=== PATIENT | female | born 1955 | race African-American/Black ===

== ENCOUNTER 2020-02-08 01:35 | Inpatient (IN) ==
[2020-02-08] MEDS ORDERED: SODIUM CHLORIDE 0.9% 1,000 ML IV STA ×2 (01:49→02:54)
[2020-02-08 02:16] LABS: Basophils # 0.1 10*3/uL (0.0-0.2); Basophils % 0.5 % (0.0-0.8); Eosinophils # 0.4 10*3/uL (0.0-0.87); Hematocrit 32.5 VOL% (35.7-47.0); Hemoglobin 10.3 GM/DL (12.0-16.0); Immature Granulocytes % 1.2 %; Immature Granulocytes Absolute 0.23 #; Lymphocytes # 4.3 10*3/uL (1.4-4.0); Lymphocytes % 21.7 % (21.3-54.2); Mean Corpuscular HGB Conc 31.7 GM/DL (32-36); Mean Corpuscular Volume 88.6 FL (87-102); Mean Platelet Volume 11.2 FL (9.6-12.0); Monocytes % 5.7 % (1.7-12.7); NRBC # 0.07 10*3/uL; Neutrophils % 68.9 % (38.7-73.9); Platelet Count 447 T/CUMM (130-400); Red Blood Count 3.67 MC/CUMM (3.8-5.5); Red Cell Distribution Width 18.4 % (9.3-17.3); White Blood Count 19.9 T/CUMM (4-12)
[2020-02-08 02:35] LABS: Albumin 2.1 G/DL (3.4-5.0); Bilirubin,Total 0.6 MG/DL (0.2-1.0); Calcium 8.8 MG/DL (8.5-10.1); Ferritin 333.7 ng/ml (8-252); Osmolality,Calculated 273.5 MOS/KG (273-304); Total Protein 7.7 G/DL (6.4-8.3)
[2020-02-08 02:49] LABS: Bilirubin,Urine Negative (Negative); Blood, Urine Negative (Negative); Glucose,Urine (UA) Negative (Negative); Ketones,Urine Negative (Negative); Nitrite,Urine Negative (Negative); Protein,Urine 100 MG/DL; RBC,Urine 92 /HPF (0-4); Urine Appearance CLOUDY (Clear); Urine Color Yellow (Yellow); Urine Specific Gravity 1.019 (1.001-1.035); Urine Urobilinogen < 2.0 EU/DL (0.2-1.0); WBC,Urine 5918 /HPF (0-6)
[2020-02-08] MEDS ORDERED: PIPERACILLIN/TAZOBACTAM 3,375 MG in SODIUM CHLORIDE 0.9% 100 ML IV STA (02:53)
[2020-02-08] MEDS ORDERED: INSULIN REGULAR 100 UNIT/ML IV STA (02:53)
[2020-02-08] MEDS ORDERED: DEXTROSE 50% 25 GM/50 ML VIAL IV STA (02:53)
[2020-02-08] MEDS ORDERED: DEXTROSE 50% 25 GM/50 ML SYRINGE IV ONE (03:29)
[2020-02-08] MEDS ORDERED: GLUCAGON 1 MG VIAL IM PRN (05:14)
[2020-02-08] MEDS ORDERED: DEXTROSE 50% 25 GM/50 ML SYRINGE IV PRN (05:14)
[2020-02-08] MEDS: SODIUM CHLORIDE 0.9% 1,000 ML IV SCH ×2 (06:34→22:11)
[2020-02-08] MEDS ORDERED: PANTOPRAZOLE 40 MG TABLET PO SCH (09:00)
[2020-02-08] MEDS: ENOXAPARIN 30 MG/0.3 ML SYRINGE SUBCUT SCH (09:31)
[2020-02-08] MEDS: PIPERACILLIN/TAZOBACTAM 3,375 MG in SODIUM CHLORIDE 0.9% 100 ML IV SCH (13:59)
[2020-02-08] MEDS: ONDANSETRON 4 MG/2 ML VIAL IV PRN (20:04)
[2020-02-09] MEDS ORDERED: DIAZEPAM 5 MG TABLET PO PRN (00:30)
[2020-02-09] MEDS: clonazePAM 0.5 MG TABLET PO SCH ×3 (00:48→20:54)
[2020-02-09 05:44] LABS: Basophils # 0.1 10*3/uL (0.0-0.2); Basophils % 0.4 % (0.0-0.8); Eosinophils # 0.4 10*3/uL (0.0-0.87); Eosinophils % 1.4 % (0.00-10.9); Hematocrit 26.7 VOL% (35.7-47.0); Immature Granulocytes % 1.1 %; Immature Granulocytes Absolute 0.28 #; Lymphocytes # 3.4 10*3/uL (1.4-4.0); Lymphocytes % 13.2 % (21.3-54.2); Mean Corpuscular HGB Conc 30.3 GM/DL (32-36); Mean Corpuscular Volume 91.4 FL (87-102); Mean Platelet Volume 10.6 FL (9.6-12.0); Monocytes % 5.4 % (1.7-12.7); Neutrophils % 78.5 % (38.7-73.9); Red Blood Count 2.92 MC/CUMM (3.8-5.5); Red Cell Distribution Width 18.5 % (9.3-17.3)
[2020-02-09 05:52] LABS: Hemoglobin 8.1 GM/DL (12.0-16.0); White Blood Count 25.5 T/CUMM (4-12)
[2020-02-09 05:53] LABS: Platelet Count 351 T/CUMM (130-400)
[2020-02-09 06:21] LABS: Albumin 1.5 G/DL (3.4-5.0); Bilirubin,Total 1.4 MG/DL (0.2-1.0); Calcium 8.2 MG/DL (8.5-10.1); Ferritin 327.9 ng/ml (8-252); Osmolality,Calculated 287.5 MOS/KG (273-304); Total Protein 5.9 G/DL (6.4-8.3)
[2020-02-09 07:46] LABS: Band Neutrophils 6 % (0-10); Lymphocytes 12 % (20-55); Segmented Neutrophils 77 % (50-85); Total Cells Counted 100
[2020-02-09 07:47] LABS: Anisocytosis 1+; Hypochromasia 2+; Macrocytosis 1+; Platelet Estimate Normal
[2020-02-09] MEDS: PIPERACILLIN/TAZOBACTAM 3,375 MG in SODIUM CHLORIDE 0.9% 100 ML IV SCH ×2 (09:04→20:53)
[2020-02-09] MEDS: ENOXAPARIN 30 MG/0.3 ML SYRINGE SUBCUT SCH (09:07)
[2020-02-09] MEDS: SODIUM CHLORIDE 0.9% 1,000 ML IV SCH (09:08)
[2020-02-09] MEDS: ONDANSETRON 4 MG/2 ML VIAL IV PRN (09:20)
[2020-02-09] MEDS ORDERED: SODIUM POLYSTYRENE SULFATE 15 GM/60 ML BOTTLE PO ONE (15:43)
[2020-02-09 17:26] LABS: % Iron Saturation 9.8 % (18-50); Ferritin 291.1 ng/ml (8-252)
[2020-02-09 17:43] LABS: Folate 6.3 NG/ML (5.4-24.0); Vitamin B12 > 2000 PG/ML (211-911)
[2020-02-10] MEDS: SODIUM CHLORIDE 0.9% 1,000 ML IV SCH ×2 (01:19→15:04)
[2020-02-10 06:34] LABS: Basophils # 0.1 10*3/uL (0.0-0.2); Basophils % 0.3 % (0.0-0.8); Eosinophils # 0.5 10*3/uL (0.0-0.87); Eosinophils % 2.3 % (0.00-10.9); Hematocrit 29.8 VOL% (35.7-47.0); Hemoglobin 8.7 GM/DL (12.0-16.0); Immature Granulocytes % 0.9 %; Lymphocytes # 3.1 10*3/uL (1.4-4.0); Lymphocytes % 13.4 % (21.3-54.2); Mean Corpuscular HGB Conc 29.2 GM/DL (32-36); Mean Corpuscular Volume 93.4 FL (87-102); Mean Platelet Volume 10.7 FL (9.6-12.0); Monocytes % 5.9 % (1.7-12.7); Neutrophils % 77.2 % (38.7-73.9); Platelet Count 335 T/CUMM (130-400); Red Blood Count 3.19 MC/CUMM (3.8-5.5); Red Cell Distribution Width 18.6 % (9.3-17.3); White Blood Count 23.3 T/CUMM (4-12)
[2020-02-10 06:53] LABS: Albumin 1.6 G/DL (3.4-5.0); Bilirubin,Total 0.7 MG/DL (0.2-1.0); Calcium 8.9 MG/DL (8.5-10.1); Total Protein 6.2 G/DL (6.4-8.3)
[2020-02-10 07:02] LABS: Anisocytosis 2+; Band Neutrophils 12 % (0-10); Eosinophils 5 % (0-10); Lymphocytes 16 % (20-55); Platelet Estimate Normal; Segmented Neutrophils 62 % (50-85); Smudge Cells Few; Total Cells Counted 100
[2020-02-10 07:03] LABS: Burr Cells Few
[2020-02-10] MEDS: clonazePAM 0.5 MG TABLET PO SCH ×2 (08:42→20:51)
[2020-02-10] MEDS: PIPERACILLIN/TAZOBACTAM 3,375 MG in SODIUM CHLORIDE 0.9% 100 ML IV SCH ×2 (08:42→20:51)
[2020-02-10] MEDS: ENOXAPARIN 30 MG/0.3 ML SYRINGE SUBCUT SCH (08:51)
[2020-02-10] MEDS: MEGESTROL 40 MG TABLET PO SCH ×2 (12:31→16:49)
[2020-02-10] MEDS: GABAPENTIN 300 MG CAPSULE PO SCH ×2 (15:05→20:51)
[2020-02-10] MEDS: FERROUS SULFATE 325 MG TABLET PO SCH ×2 (15:05→20:52)
[2020-02-10 20:11] LABS: Bilirubin,Urine Negative (Negative); Blood, Urine Small mg/dL (Negative); Glucose,Urine (UA) Negative (Negative); Ketones,Urine Negative (Negative); Nitrite,Urine Negative (Negative); Protein,Urine 100 MG/DL; RBC,Urine 15 /HPF (0-4); Urine Appearance CLOUDY (Clear); Urine Color Yellow (Yellow); Urine Specific Gravity 1.012 (1.001-1.035); Urine Urobilinogen < 2.0 EU/DL (0.2-1.0); WBC,Urine 887 /HPF (0-6)
[2020-02-11] MEDS: SODIUM CHLORIDE 0.9% 1,000 ML IV SCH (05:17)
[2020-02-11 06:02] LABS: Basophils # 0.1 10*3/uL (0.0-0.2); Basophils % 0.4 % (0.0-0.8); Eosinophils # 0.5 10*3/uL (0.0-0.87); Eosinophils % 1.9 % (0.00-10.9); Hematocrit 27.2 VOL% (35.7-47.0); Hemoglobin 8.1 GM/DL (12.0-16.0); Immature Granulocytes Absolute 0.26 #; Lymphocytes # 3.9 10*3/uL (1.4-4.0); Lymphocytes % 15.6 % (21.3-54.2); Mean Corpuscular HGB Conc 29.8 GM/DL (32-36); Mean Corpuscular Volume 92.2 FL (87-102); Mean Platelet Volume 10.3 FL (9.6-12.0); Monocytes % 4.2 % (1.7-12.7); Neutrophils % 76.9 % (38.7-73.9); Platelet Count 354 T/CUMM (130-400); Red Blood Count 2.95 MC/CUMM (3.8-5.5); Red Cell Distribution Width 18.6 % (9.3-17.3); White Blood Count 24.9 T/CUMM (4-12)
[2020-02-11 06:15] LABS: Alanine Aminotransferase 16 U/L (13-56); Albumin 1.3 G/DL (3.4-5.0); Alkaline Phosphatase 253 U/L (45-117); Aspartate Amino Transferase 18 U/L (0-37); Bilirubin,Total < 0.39 MG/DL (0.2-1.0); Blood Urea Nitrogen 49 MG/DL (7-18); Calcium 8.5 MG/DL (8.5-10.1); Estimated Glom Filtration Rate 14 ML/MIN; Glucose 77 MG/DL (74-106); Osmolality,Calculated 301.6 MOS/KG (273-304); Total Protein 6.1 G/DL (6.4-8.3)
[2020-02-11 07:56] LABS: Anisocytosis 2+; Band Neutrophils 7 % (0-10); Eosinophils 2 % (0-10); Lymphocytes 13 % (20-55); Metamyelocytes 1 %; Platelet Estimate Normal; Segmented Neutrophils 70 % (50-85); Total Cells Counted 100
[2020-02-11 07:57] LABS: Macrocytosis 1+
[2020-02-11] MEDS: PIPERACILLIN/TAZOBACTAM 3,375 MG in SODIUM CHLORIDE 0.9% 100 ML IV SCH ×2 (09:31→22:35)
[2020-02-11] MEDS: GABAPENTIN 300 MG CAPSULE PO SCH ×3 (09:32→21:45)
[2020-02-11] MEDS: MEGESTROL 40 MG TABLET PO SCH ×3 (09:32→17:15)
[2020-02-11] MEDS: ENOXAPARIN 30 MG/0.3 ML SYRINGE SUBCUT SCH (09:32)
[2020-02-11] MEDS: clonazePAM 0.5 MG TABLET PO SCH ×2 (09:33→21:44)
[2020-02-11] MEDS: FERROUS SULFATE 325 MG TABLET PO SCH ×3 (09:33→21:44)
[2020-02-11] MEDS ORDERED: VANCOMYCIN INJ 1,250 MG in SODIUM CHLORIDE 0.9% 250 ML IV PRN (13:19)
[2020-02-11] MEDS ORDERED: VANCOMYCIN INJ 1,250 MG in SODIUM CHLORIDE 0.9% 250 ML IV ONE ×2 (15:00→18:00)
[2020-02-12 06:26] LABS: Basophils # 0.1 10*3/uL (0.0-0.2); Basophils % 0.5 % (0.0-0.8); Eosinophils # 0.7 10*3/uL (0.0-0.87); Eosinophils % 4.3 % (0.00-10.9); Hematocrit 28.5 VOL% (35.7-47.0); Hemoglobin 8.4 GM/DL (12.0-16.0); Immature Granulocytes % 1.7 %; Immature Granulocytes Absolute 0.28 #; Lymphocytes % 18.7 % (21.3-54.2); Mean Corpuscular HGB Conc 29.5 GM/DL (32-36); Mean Corpuscular Volume 92.2 FL (87-102); Mean Platelet Volume 10.5 FL (9.6-12.0); Monocytes % 7.4 % (1.7-12.7); Neutrophils % 67.4 % (38.7-73.9); Platelet Count 359 T/CUMM (130-400); Red Blood Count 3.09 MC/CUMM (3.8-5.5); Red Cell Distribution Width 19.1 % (9.3-17.3); White Blood Count 16.3 T/CUMM (4-12)
[2020-02-12 06:34] LABS: Alanine Aminotransferase 15 U/L (13-56); Albumin 1.4 G/DL (3.4-5.0); Alkaline Phosphatase 280 U/L (45-117); Aspartate Amino Transferase 23 U/L (0-37); Bilirubin,Total < 0.39 MG/DL (0.2-1.0); Blood Urea Nitrogen 49 MG/DL (7-18); Calcium 8.8 MG/DL (8.5-10.1); Estimated Glom Filtration Rate 17 ML/MIN; Glucose 72 MG/DL (74-106); Osmolality,Calculated 307.1 MOS/KG (273-304); Total Protein 6.4 G/DL (6.4-8.3)
[2020-02-12 07:48] LABS: Anisocytosis 2+; Macrocytosis 1+; Platelet Estimate Normal; Target Cells Few
[2020-02-12] MEDS: ENOXAPARIN 30 MG/0.3 ML SYRINGE SUBCUT SCH (08:52)
[2020-02-12] MEDS: PIPERACILLIN/TAZOBACTAM 3,375 MG in SODIUM CHLORIDE 0.9% 100 ML IV SCH ×2 (08:52→20:50)
[2020-02-12] MEDS ORDERED: FUROSEMIDE 40 MG/4 ML VIAL IV ONE (09:00)
[2020-02-12] MEDS ORDERED: DEXTROSE 5% NACL 0.45% 1,000 ML IV SCH (09:00)
[2020-02-12] MEDS: clonazePAM 0.5 MG TABLET PO SCH ×2 (09:07→20:32)
[2020-02-12] MEDS: MEGESTROL 40 MG TABLET PO SCH ×3 (09:07→16:41)
[2020-02-12] MEDS: FERROUS SULFATE 325 MG TABLET PO SCH ×3 (09:07→20:31)
[2020-02-12] MEDS: GABAPENTIN 300 MG CAPSULE PO SCH ×3 (09:07→20:32)
[2020-02-12 09:32] LABS: ABG Base Excess -8.2 MMOL/L (-2.5-2.5); ABG HCO3 17.8 MMOL/L (20-26); ABG Oxygen Saturation 95.8 % (95-100); ABG PCO2 55.2 MM HG (35-48); ABG TCO2 19.3 MMOL/L (23-27)
[2020-02-12 09:34] LABS: ABG PH 7.179 (7.35-7.45)
[2020-02-12] MEDS ORDERED: SODIUM BICARB INJ 100 MEQ in DEXTROSE 5% NACL 0.22% 1,000 ML IV SCH (10:30)
[2020-02-12] MEDS ORDERED: VANCOMYCIN INJ 1,250 MG in SODIUM CHLORIDE 0.9% 250 ML IV ONE (12:00)
[2020-02-12 18:42] LABS: ABG Base Excess -2.5 MMOL/L (-2.5-2.5); ABG HCO3 22.3 MMOL/L (20-26); ABG Oxygen Saturation 96.8 % (95-100); ABG PCO2 57.3 MM HG (35-48); ABG PH 7.253 (7.35-7.45); ABG PO2 88.5 MM HG (80-95); ABG TCO2 23.8 MMOL/L (23-27)
[2020-02-12] MEDS: SODIUM BICARB INJ 100 MEQ in DEXTROSE 5% NACL 0.22% 1,000 ML IV SCH (23:59)
[2020-02-13] MEDS: PANTOPRAZOLE 40 MG TABLET PO SCH (05:37)
[2020-02-13 08:09] LABS: Basophils # 0.1 10*3/uL (0.0-0.2); Basophils % 0.5 % (0.0-0.8); Eosinophils % 10.9 % (0.00-10.9); Hematocrit 27.5 VOL% (35.7-47.0); Hemoglobin 8.5 GM/DL (12.0-16.0); Immature Granulocytes % 1.6 %; Immature Granulocytes Absolute 0.15 #; Lymphocytes % 21.1 % (21.3-54.2); Mean Corpuscular HGB Conc 30.9 GM/DL (32-36); Mean Platelet Volume 9.8 FL (9.6-12.0); Monocytes % 10.8 % (1.7-12.7); Neutrophils % 55.1 % (38.7-73.9); Platelet Count 312 T/CUMM (130-400); Red Blood Count 3.09 MC/CUMM (3.8-5.5); Red Cell Distribution Width 18.5 % (9.3-17.3); White Blood Count 9.4 T/CUMM (4-12)
[2020-02-13 08:29] LABS: Calcium 8.8 MG/DL (8.5-10.1)
[2020-02-13] MEDS: ENOXAPARIN 30 MG/0.3 ML SYRINGE SUBCUT SCH (09:08)
[2020-02-13] MEDS: PIPERACILLIN/TAZOBACTAM 3,375 MG in SODIUM CHLORIDE 0.9% 100 ML IV SCH ×2 (09:08→21:03)
[2020-02-13] MEDS: MEGESTROL 40 MG TABLET PO SCH ×3 (10:19→16:52)
[2020-02-13] MEDS: FERROUS SULFATE 325 MG TABLET PO SCH ×3 (10:19→21:00)
[2020-02-13] MEDS: GABAPENTIN 300 MG CAPSULE PO SCH ×3 (10:19→21:03)
[2020-02-13] MEDS: clonazePAM 0.5 MG TABLET PO SCH ×2 (10:19→21:03)
[2020-02-13] MEDS: POTASSIUM CHLORIDE 20 MEQ TABLET PO SCH (14:25)
[2020-02-13] MEDS: SODIUM BICARB INJ 100 MEQ in DEXTROSE 5% NACL 0.22% 1,000 ML IV SCH (14:49)
[2020-02-13 15:38] LABS: ABG Base Excess 6.7 MMOL/L (-2.5-2.5); ABG HCO3 30.5 MMOL/L (20-26); ABG Oxygen Saturation 90.8 % (95-100); ABG PH 7.399 (7.35-7.45); ABG PO2 60.1 MM HG (80-95); ABG TCO2 30.3 MMOL/L (23-27); Allen Test Positive; Pt O2 Delivery Device BIPAP
[2020-02-13] MEDS: AZITHROMYCIN INJ 500 MG in SODIUM CHLORIDE 0.9% 250 ML IV SCH (15:41)
[2020-02-13] MEDS: DEXTROSE 5% 1,000 ML IV SCH (15:41)
[2020-02-13] MEDS: POTASSIUM CHLORIDE RIDER 10 MEQ in PREMIX 1 EACH IV SCH ×4 (16:11→19:36)
[2020-02-14] MEDS: DEXTROSE 5% 1,000 ML IV SCH ×3 (04:50→21:29)
[2020-02-14] MEDS: PANTOPRAZOLE 40 MG TABLET PO SCH (05:46)
[2020-02-14 05:57] LABS: ABG Base Excess 4.7 MMOL/L (-2.5-2.5); ABG HCO3 29.9 MMOL/L (20-26); ABG Oxygen Saturation 94.2 % (95-100); ABG PCO2 48.1 MM HG (35-48); ABG PH 7.412 (7.35-7.45); ABG PO2 71.9 MM HG (80-95); ABG TCO2 31.4 MMOL/L (23-27)
[2020-02-14 07:46] LABS: Calcium 8.2 MG/DL (8.5-10.1); Osmolality,Calculated 300.3 MOS/KG (273-304)
[2020-02-14] MEDS: ENOXAPARIN 30 MG/0.3 ML SYRINGE SUBCUT SCH (08:31)
[2020-02-14] MEDS: PIPERACILLIN/TAZOBACTAM 3,375 MG in SODIUM CHLORIDE 0.9% 100 ML IV SCH (08:32)
[2020-02-14] MEDS: MEGESTROL 40 MG TABLET PO SCH ×3 (09:46→16:35)
[2020-02-14] MEDS: POTASSIUM CHLORIDE 20 MEQ TABLET PO SCH (09:47)
[2020-02-14] MEDS: FERROUS SULFATE 325 MG TABLET PO SCH ×3 (09:47→21:46)
[2020-02-14] MEDS: clonazePAM 0.5 MG TABLET PO SCH ×2 (09:48→21:46)
[2020-02-14] MEDS: GABAPENTIN 300 MG CAPSULE PO SCH ×2 (09:48→14:19)
[2020-02-14] MEDS ORDERED: MAGNESIUM SULF RIDER 4 GM in PREMIX 1 EACH IV ONE (10:00)
[2020-02-14] MEDS ORDERED: VANCOMYCIN INJ 1,250 MG in SODIUM CHLORIDE 0.9% 250 ML IV ONE (12:00)
[2020-02-14] MEDS ORDERED: TUBERCULIN SKIN TEST 0.1 ML SYRINGE INTRADERM ONE (14:04)
[2020-02-14] MEDS: AZITHROMYCIN INJ 500 MG in SODIUM CHLORIDE 0.9% 250 ML IV SCH (14:54)
[2020-02-14] MEDS ORDERED: ENOXAPARIN 60 MG/0.6 ML SYRINGE SUBCUT ONE ×2 (17:41→21:30)
[2020-02-14] MEDS ORDERED: ENOXAPARIN 80 MG/0.8 ML SYRINGE SUBCUT SCH (18:00)
[2020-02-14] MEDS ORDERED: AMPICILLIN/SULBACTAM 1,500 MG in SODIUM CHLORIDE 0.9% 100 ML IV SCH (18:00)
[2020-02-14] MEDS: MEROPENEM 500 MG in SODIUM CHLORIDE 0.9% 100 ML IV SCH (21:28)
[2020-02-15 04:54] LABS: ABG Base Excess 3.6 MMOL/L (-2.5-2.5); ABG HCO3 27.6 MMOL/L (20-26); ABG Oxygen Saturation 96.3 % (95-100); ABG PCO2 48.5 MM HG (35-48); ABG PH 7.389 (7.35-7.45); ABG PO2 84.2 MM HG (80-95); ABG TCO2 26.5 MMOL/L (23-27); Allen Test Positive
[2020-02-15] MEDS: MEROPENEM 500 MG in SODIUM CHLORIDE 0.9% 100 ML IV SCH ×3 (05:31→22:53)
[2020-02-15] MEDS: PANTOPRAZOLE 40 MG TABLET PO SCH (05:31)
[2020-02-15] MEDS: DEXTROSE 5% 1,000 ML IV SCH ×2 (05:40→20:23)
[2020-02-15 05:50] LABS: Basophils # 0.1 10*3/uL (0.0-0.2); Basophils % 0.5 % (0.0-0.8); Eosinophils # 0.6 10*3/uL (0.0-0.87); Eosinophils % 6.3 % (0.00-10.9); Hematocrit 29.8 VOL% (35.7-47.0); Hemoglobin 9.3 GM/DL (12.0-16.0); Immature Granulocytes % 2.5 %; Immature Granulocytes Absolute 0.23 #; Mean Corpuscular HGB Conc 31.2 GM/DL (32-36); Mean Corpuscular Volume 87.9 FL (87-102); Mean Platelet Volume 10.6 FL (9.6-12.0); Monocytes % 5.4 % (1.7-12.7); Neutrophils % 63.3 % (38.7-73.9); Platelet Count 270 T/CUMM (130-400); Red Blood Count 3.39 MC/CUMM (3.8-5.5); Red Cell Distribution Width 18.2 % (9.3-17.3); White Blood Count 9.2 T/CUMM (4-12)
[2020-02-15 06:49] LABS: Albumin 1.4 G/DL (3.4-5.0); Bilirubin,Total 0.8 MG/DL (0.2-1.0); Calcium 7.8 MG/DL (8.5-10.1); Osmolality,Calculated 281.5 MOS/KG (273-304); Total Protein 5.3 G/DL (6.4-8.3)
[2020-02-15 06:57] LABS: Eosinophils 7 % (0-10); Lymphocytes 15 % (20-55); Platelet Estimate Normal; Segmented Neutrophils 69 % (50-85); Total Cells Counted 100
[2020-02-15] MEDS: POTASSIUM CHLORIDE 20 MEQ TABLET PO SCH (08:44)
[2020-02-15] MEDS: clonazePAM 0.5 MG TABLET PO SCH ×2 (08:44→20:22)
[2020-02-15] MEDS: FERROUS SULFATE 325 MG TABLET PO SCH ×3 (08:44→20:22)
[2020-02-15] MEDS ORDERED: SKIN HEALING OINT (AQUAPHOR) 50 GM TUBE TOP PRN (09:14)
[2020-02-15] MEDS ORDERED: ENOXAPARIN 80 MG/0.8 ML SYRINGE SUBCUT SCH (18:00)
[2020-02-15] MEDS ORDERED: AZITHROMYCIN INJ 500 MG in SODIUM CHLORIDE 0.9% 250 ML IV SCH (19:00)
[2020-02-15] MEDS: methylPREDNISolone SOD SUC 40 MG/1 ML VIAL IV SCH (20:23)
[2020-02-16] MEDS: methylPREDNISolone SOD SUC 40 MG/1 ML VIAL IV SCH ×3 (04:14→18:02)
[2020-02-16] MEDS: MEROPENEM 500 MG in SODIUM CHLORIDE 0.9% 100 ML IV SCH (05:47)
[2020-02-16] MEDS: PANTOPRAZOLE 40 MG TABLET PO SCH (05:48)
[2020-02-16 06:03] LABS: Basophils # 0.1 10*3/uL (0.0-0.2); Basophils % 0.5 % (0.0-0.8); Eosinophils % 0.1 % (0.00-10.9); Hematocrit 32.3 VOL% (35.7-47.0); Hemoglobin 10.2 GM/DL (12.0-16.0); Immature Granulocytes % 4.6 %; Immature Granulocytes Absolute 0.53 #; Lymphocytes # 1.8 10*3/uL (1.4-4.0); Lymphocytes % 15.8 % (21.3-54.2); Mean Corpuscular HGB Conc 31.6 GM/DL (32-36); Mean Corpuscular Volume 85.7 FL (87-102); Mean Platelet Volume 10.9 FL (9.6-12.0); Monocytes % 1.6 % (1.7-12.7); NRBC # 0.03 10*3/uL; Neutrophils % 77.4 % (38.7-73.9); Platelet Count 310 T/CUMM (130-400); Red Blood Count 3.77 MC/CUMM (3.8-5.5); Red Cell Distribution Width 17.4 % (9.3-17.3); White Blood Count 11.5 T/CUMM (4-12)
[2020-02-16 07:46] LABS: Band Neutrophils 1 % (0-10); Lymphocytes 10 % (20-55); Segmented Neutrophils 88 % (50-85); Total Cells Counted 100
[2020-02-16 07:47] LABS: Microcytosis 1+; Platelet Estimate Increased; Target Cells 1+
[2020-02-16] MEDS: ENOXAPARIN 60 MG/0.6 ML SYRINGE SUBCUT SCH (09:42)
[2020-02-16] MEDS: FERROUS SULFATE 325 MG TABLET PO SCH ×3 (09:43→21:17)
[2020-02-16] MEDS: POTASSIUM CHLORIDE 20 MEQ TABLET PO SCH (09:43)
[2020-02-16] MEDS: AZITHROMYCIN 250 MG TABLET PO SCH (09:43)
[2020-02-16] MEDS: clonazePAM 0.5 MG TABLET PO SCH ×2 (09:43→21:17)
[2020-02-16 09:56] LABS: Calcium 8.4 MG/DL (8.5-10.1); Osmolality,Calculated 275.1 MOS/KG (273-304)
[2020-02-16] MEDS: AMPICILLIN/SULBACTAM 3,000 MG in SODIUM CHLORIDE 0.9% 100 ML IV SCH ×3 (15:14→18:48)
[2020-02-16] MEDS: VANCOMYCIN INJ 1,250 MG in SODIUM CHLORIDE 0.9% 250 ML IV SCH (15:15)
[2020-02-16] MEDS: DEXTROSE 5% 1,000 ML IV SCH (15:19)
[2020-02-17] MEDS: ONDANSETRON 4 MG/2 ML VIAL IV PRN ×3 (02:23→14:38)
[2020-02-17] MEDS: AMPICILLIN/SULBACTAM 3,000 MG in SODIUM CHLORIDE 0.9% 100 ML IV SCH ×4 (02:24→18:30)
[2020-02-17] MEDS: methylPREDNISolone SOD SUC 40 MG/1 ML VIAL IV SCH ×3 (04:40→18:30)
[2020-02-17] MEDS: DEXTROSE 5% 1,000 ML IV SCH (04:42)
[2020-02-17 05:37] LABS: Basophils # 0.1 10*3/uL (0.0-0.2); Basophils % 0.4 % (0.0-0.8); Hematocrit 30.5 VOL% (35.7-47.0); Hemoglobin 9.7 GM/DL (12.0-16.0); Immature Granulocytes % 4.6 %; Immature Granulocytes Absolute 0.57 #; Lymphocytes # 3.3 10*3/uL (1.4-4.0); Lymphocytes % 26.2 % (21.3-54.2); Mean Corpuscular HGB Conc 31.8 GM/DL (32-36); Mean Corpuscular Volume 85.2 FL (87-102); Mean Platelet Volume 10.5 FL (9.6-12.0); Monocytes % 1.9 % (1.7-12.7); Neutrophils % 66.9 % (38.7-73.9); Platelet Count 363 T/CUMM (130-400); Red Blood Count 3.58 MC/CUMM (3.8-5.5); Red Cell Distribution Width 17.3 % (9.3-17.3); White Blood Count 12.4 T/CUMM (4-12)
[2020-02-17] MEDS: PANTOPRAZOLE 40 MG TABLET PO SCH (06:00)
[2020-02-17 06:08] LABS: Lymphocytes 22 % (20-55); Metamyelocytes 2 %; Segmented Neutrophils 76 % (50-85); Total Cells Counted 100
[2020-02-17 06:09] LABS: Anisocytosis 1+; Hypochromasia 2+; Microcytosis 1+; Platelet Estimate Normal; Target Cells Few
[2020-02-17 06:11] LABS: Calcium 8.7 MG/DL (8.5-10.1); Osmolality,Calculated 270.4 MOS/KG (273-304)
[2020-02-17] MEDS: AZITHROMYCIN 250 MG TABLET PO SCH (08:38)
[2020-02-17] MEDS: clonazePAM 0.5 MG TABLET PO SCH ×2 (08:38→20:26)
[2020-02-17] MEDS: FERROUS SULFATE 325 MG TABLET PO SCH ×3 (08:38→20:26)
[2020-02-17] MEDS: POTASSIUM CHLORIDE 20 MEQ TABLET PO SCH (08:38)
[2020-02-17] MEDS: ENOXAPARIN 60 MG/0.6 ML SYRINGE SUBCUT SCH (08:39)
[2020-02-17] MEDS: CIPROFLOXACIN 500 MG TABLET PO SCH ×2 (14:39→20:26)
[2020-02-17] MEDS: ACETAMINOPHEN 325 MG TABLET PO PRN (14:39)
[2020-02-17] MEDS: METOPROLOL TARTRATE 50 MG TABLET PO SCH ×2 (15:41→20:26)
[2020-02-18] MEDS: AMPICILLIN/SULBACTAM 3,000 MG in SODIUM CHLORIDE 0.9% 100 ML IV SCH ×4 (00:16→18:04)
[2020-02-18] MEDS: VANCOMYCIN INJ 1,250 MG in SODIUM CHLORIDE 0.9% 250 ML IV SCH (01:39)
[2020-02-18] MEDS: methylPREDNISolone SOD SUC 40 MG/1 ML VIAL IV SCH ×3 (02:27→18:04)
[2020-02-18] MEDS: PANTOPRAZOLE 40 MG TABLET PO SCH (05:53)
[2020-02-18 06:02] LABS: Basophils % 0.2 % (0.0-0.8); Hematocrit 31.9 VOL% (35.7-47.0); Hemoglobin 10.2 GM/DL (12.0-16.0); Immature Granulocytes % 1.7 %; Lymphocytes # 1.8 10*3/uL (1.4-4.0); Lymphocytes % 10.4 % (21.3-54.2); Mean Corpuscular Volume 85.1 FL (87-102); Mean Platelet Volume 11.1 FL (9.6-12.0); Monocytes % 2.3 % (1.7-12.7); NRBC # 0.02 10*3/uL; Neutrophils % 85.4 % (38.7-73.9); Platelet Count 411 T/CUMM (130-400); Red Blood Count 3.75 MC/CUMM (3.8-5.5); Red Cell Distribution Width 17.2 % (9.3-17.3); White Blood Count 17.6 T/CUMM (4-12)
[2020-02-18] MEDS: clonazePAM 0.5 MG TABLET PO SCH ×2 (09:25→20:28)
[2020-02-18] MEDS: POTASSIUM CHLORIDE 20 MEQ TABLET PO SCH (09:25)
[2020-02-18] MEDS: FERROUS SULFATE 325 MG TABLET PO SCH ×3 (09:25→20:28)
[2020-02-18] MEDS: CIPROFLOXACIN 500 MG TABLET PO SCH ×2 (09:25→20:28)
[2020-02-18] MEDS: METOPROLOL TARTRATE 50 MG TABLET PO SCH ×2 (09:25→20:28)
[2020-02-18] MEDS: ENOXAPARIN 60 MG/0.6 ML SYRINGE SUBCUT SCH (09:26)
[2020-02-19] MEDS: AMPICILLIN/SULBACTAM 3,000 MG in SODIUM CHLORIDE 0.9% 100 ML IV SCH ×4 (00:42→18:06)
[2020-02-19] MEDS: methylPREDNISolone SOD SUC 40 MG/1 ML VIAL IV SCH ×3 (02:09→18:07)
[2020-02-19] MEDS: PANTOPRAZOLE 40 MG TABLET PO SCH ×2 (06:01→20:54)
[2020-02-19] MEDS: FERROUS SULFATE 325 MG TABLET PO SCH ×3 (08:31→20:47)
[2020-02-19] MEDS: clonazePAM 0.5 MG TABLET PO SCH ×2 (08:31→20:48)
[2020-02-19] MEDS: ENOXAPARIN 60 MG/0.6 ML SYRINGE SUBCUT SCH (08:32)
[2020-02-19] MEDS: METOPROLOL TARTRATE 50 MG TABLET PO SCH ×2 (08:32→20:47)
[2020-02-19] MEDS: POTASSIUM CHLORIDE 20 MEQ TABLET PO SCH (08:32)
[2020-02-19] MEDS: CIPROFLOXACIN 500 MG TABLET PO SCH ×2 (08:32→20:47)
[2020-02-19 09:34] LABS: Basophils % 0.1 % (0.0-0.8); Hematocrit 30.1 VOL% (35.7-47.0); Hemoglobin 9.5 GM/DL (12.0-16.0); Immature Granulocytes % 2.8 %; Immature Granulocytes Absolute 0.31 #; Lymphocytes # 1.9 10*3/uL (1.4-4.0); Lymphocytes % 17.4 % (21.3-54.2); Mean Corpuscular HGB Conc 31.6 GM/DL (32-36); Mean Corpuscular Volume 85.3 FL (87-102); Mean Platelet Volume 11.4 FL (9.6-12.0); Monocytes % 2.5 % (1.7-12.7); NRBC # 0.02 10*3/uL; Neutrophils % 77.2 % (38.7-73.9); Platelet Count 377 T/CUMM (130-400); Red Blood Count 3.53 MC/CUMM (3.8-5.5); Red Cell Distribution Width 17.6 % (9.3-17.3)
[2020-02-19 11:05] LABS: Calcium 9.1 MG/DL (8.5-10.1); Osmolality,Calculated 274.2 MOS/KG (273-304)
[2020-02-19 14:07] LABS: Thyroid Stimulating Hormone 0.622 uIU/ml (0.358-3.74)
[2020-02-19 14:36] LABS: Basophils % 0.2 % (0.0-0.8); Hematocrit 31.2 VOL% (35.7-47.0); Hemoglobin 9.8 GM/DL (12.0-16.0); Immature Granulocytes % 2.6 %; Immature Granulocytes Absolute 0.32 #; Lymphocytes # 2.5 10*3/uL (1.4-4.0); Lymphocytes % 20.2 % (21.3-54.2); Mean Corpuscular HGB Conc 31.4 GM/DL (32-36); Mean Corpuscular Volume 86.2 FL (87-102); Mean Platelet Volume 11.1 FL (9.6-12.0); Monocytes % 8.2 % (1.7-12.7); NRBC # 0.03 10*3/uL; Neutrophils % 68.8 % (38.7-73.9); Platelet Count 371 T/CUMM (130-400); Red Blood Count 3.62 MC/CUMM (3.8-5.5); Red Cell Distribution Width 17.4 % (9.3-17.3); White Blood Count 12.4 T/CUMM (4-12)
[2020-02-19 14:44] LABS: Alanine Aminotransferase 39 U/L (13-56); Alkaline Phosphatase 322 U/L (45-117); Aspartate Amino Transferase 102 U/L (0-37); Bilirubin,Total < 0.39 MG/DL (0.2-1.0); Blood Urea Nitrogen 25 MG/DL (7-18); Calcium 8.8 MG/DL (8.5-10.1); Estimated Glom Filtration Rate 43 ML/MIN; Glucose 137 MG/DL (74-106); Osmolality,Calculated 273.2 MOS/KG (273-304); Total Protein 7.1 G/DL (6.4-8.3)
[2020-02-19] MEDS ORDERED: hydrALAZINE 20 MG/1 ML VIAL IV PRN (15:06)
[2020-02-19] MEDS ORDERED: METOPROLOL TARTRATE 50 MG TABLET PO SCH (15:13)
[2020-02-19] MEDS ORDERED: MAGNESIUM SULF RIDER 2 GM in PREMIX 1 EACH IV ONE (15:48)
[2020-02-19] MEDS: amLODIPine 10 MG TABLET PO SCH (16:07)
[2020-02-19] MEDS: MAGNESIUM OXIDE 400 MG TABLET PO SCH (20:54)
[2020-02-20] MEDS: AMPICILLIN/SULBACTAM 3,000 MG in SODIUM CHLORIDE 0.9% 100 ML IV SCH ×4 (00:05→18:02)
[2020-02-20] MEDS: methylPREDNISolone SOD SUC 40 MG/1 ML VIAL IV SCH ×3 (02:10→18:02)
[2020-02-20 06:31] LABS: Basophils # 0.1 10*3/uL (0.0-0.2); Basophils % 0.5 % (0.0-0.8); Hematocrit 36.6 VOL% (35.7-47.0); Hemoglobin 11.1 GM/DL (12.0-16.0); Immature Granulocytes % 2.1 %; Immature Granulocytes Absolute 0.21 #; Lymphocytes # 1.9 10*3/uL (1.4-4.0); Lymphocytes % 19.1 % (21.3-54.2); Mean Corpuscular HGB Conc 30.3 GM/DL (32-36); Mean Corpuscular Volume 87.4 FL (87-102); Mean Platelet Volume 12.3 FL (9.6-12.0); Monocytes % 2.9 % (1.7-12.7); NRBC # 0.02 10*3/uL; Neutrophils % 75.4 % (38.7-73.9); Platelet Count 282 T/CUMM (130-400); Red Blood Count 4.19 MC/CUMM (3.8-5.5); Red Cell Distribution Width 17.5 % (9.3-17.3); White Blood Count 9.9 T/CUMM (4-12)
[2020-02-20 06:46] LABS: Calcium 8.9 MG/DL (8.5-10.1); Osmolality,Calculated 267.7 MOS/KG (273-304)
[2020-02-20 07:16] LABS: Risk Ratio 4.91
[2020-02-20] MEDS: clonazePAM 0.5 MG TABLET PO SCH ×2 (09:25→20:32)
[2020-02-20] MEDS: MAGNESIUM OXIDE 400 MG TABLET PO SCH ×2 (09:25→20:32)
[2020-02-20] MEDS: PANTOPRAZOLE 40 MG TABLET PO SCH ×2 (09:25→20:32)
[2020-02-20] MEDS: POTASSIUM CHLORIDE 20 MEQ TABLET PO SCH (09:25)
[2020-02-20] MEDS: METOPROLOL TARTRATE 50 MG TABLET PO SCH ×2 (09:25→20:32)
[2020-02-20] MEDS: ASPIRIN EC 81 MG TABLET PO SCH (09:25)
[2020-02-20] MEDS: CIPROFLOXACIN 500 MG TABLET PO SCH ×2 (09:25→20:32)
[2020-02-20] MEDS: CITALOPRAM 20 MG TABLET PO SCH (09:26)
[2020-02-20] MEDS: amLODIPine 10 MG TABLET PO SCH (09:26)
[2020-02-20] MEDS: FERROUS SULFATE 325 MG TABLET PO SCH ×3 (09:26→20:32)
[2020-02-20] MEDS: OXYBUTYNIN XL 5 MG TABLET PO SCH (09:26)
[2020-02-20] MEDS: ENOXAPARIN 60 MG/0.6 ML SYRINGE SUBCUT SCH (09:26)
[2020-02-20] MEDS: ROSUVASTATIN 20 MG TABLET PO SCH (10:41)
[2020-02-21] MEDS: AMPICILLIN/SULBACTAM 3,000 MG in SODIUM CHLORIDE 0.9% 100 ML IV SCH ×4 (02:29→18:15)
[2020-02-21] MEDS: methylPREDNISolone SOD SUC 40 MG/1 ML VIAL IV SCH ×3 (04:09→18:15)
[2020-02-21 05:53] LABS: Calcium 8.6 MG/DL (8.5-10.1); Osmolality,Calculated 268.5 MOS/KG (273-304)
[2020-02-21 08:16] LABS: Basophils % 0.2 % (0.0-0.8); Hematocrit 29.2 VOL% (35.7-47.0); Hemoglobin 9.5 GM/DL (12.0-16.0); Immature Granulocytes % 2.1 %; Immature Granulocytes Absolute 0.21 #; Lymphocytes # 1.3 10*3/uL (1.4-4.0); Lymphocytes % 12.7 % (21.3-54.2); Mean Corpuscular HGB Conc 32.5 GM/DL (32-36); Mean Corpuscular Volume 83.9 FL (87-102); Mean Platelet Volume 11.9 FL (9.6-12.0); Platelet Count 319 T/CUMM (130-400); Red Blood Count 3.48 MC/CUMM (3.8-5.5); Red Cell Distribution Width 16.9 % (9.3-17.3); White Blood Count 9.8 T/CUMM (4-12)
[2020-02-21 08:36] LABS: Hypochromasia 1+; Microcytosis 1+; Platelet Estimate Adequate
[2020-02-21] MEDS: clonazePAM 0.5 MG TABLET PO SCH ×2 (09:14→20:48)
[2020-02-21] MEDS: ACETAMINOPHEN 325 MG TABLET PO PRN (09:14)
[2020-02-21] MEDS: MAGNESIUM OXIDE 400 MG TABLET PO SCH ×2 (09:14→20:48)
[2020-02-21] MEDS: ROSUVASTATIN 20 MG TABLET PO SCH (09:14)
[2020-02-21] MEDS: ENOXAPARIN 60 MG/0.6 ML SYRINGE SUBCUT SCH (09:15)
[2020-02-21] MEDS: amLODIPine 10 MG TABLET PO SCH (09:15)
[2020-02-21] MEDS: PANTOPRAZOLE 40 MG TABLET PO SCH ×2 (09:15→20:48)
[2020-02-21] MEDS: OXYBUTYNIN XL 5 MG TABLET PO SCH (09:15)
[2020-02-21] MEDS: CITALOPRAM 20 MG TABLET PO SCH (09:15)
[2020-02-21] MEDS: POTASSIUM CHLORIDE 20 MEQ TABLET PO SCH (09:15)
[2020-02-21] MEDS: ASPIRIN EC 81 MG TABLET PO SCH (09:15)
[2020-02-21] MEDS: FERROUS SULFATE 325 MG TABLET PO SCH ×3 (09:15→20:48)
[2020-02-21] MEDS: CIPROFLOXACIN 500 MG TABLET PO SCH ×2 (09:15→20:48)
[2020-02-21] MEDS: METOPROLOL TARTRATE 50 MG TABLET PO SCH ×2 (09:15→20:48)
[2020-02-21] MEDS: DESITIN 4OZ/NYSTATIN 15 GRAM MIXTURE PASTE TOP SCH ×2 (09:16→20:48)
[2020-02-22] MEDS: AMPICILLIN/SULBACTAM 3,000 MG in SODIUM CHLORIDE 0.9% 100 ML IV SCH ×4 (00:33→18:04)
[2020-02-22] MEDS: methylPREDNISolone SOD SUC 40 MG/1 ML VIAL IV SCH ×3 (03:26→18:04)
[2020-02-22 08:19] LABS: Basophils % 0.2 % (0.0-0.8); Immature Granulocytes Absolute 0.19 #; Lymphocytes # 1.3 10*3/uL (1.4-4.0); Lymphocytes % 13.7 % (21.3-54.2); Mean Corpuscular HGB Conc 32.3 GM/DL (32-36); Mean Corpuscular Volume 84.7 FL (87-102); Mean Platelet Volume 12.4 FL (9.6-12.0); Monocytes % 2.7 % (1.7-12.7); Neutrophils % 81.4 % (38.7-73.9); Platelet Count 336 T/CUMM (130-400); Red Blood Count 3.66 MC/CUMM (3.8-5.5); Red Cell Distribution Width 17.1 % (9.3-17.3); White Blood Count 9.5 T/CUMM (4-12)
[2020-02-22 08:46] LABS: Calcium 8.6 MG/DL (8.5-10.1); Osmolality,Calculated 271.4 MOS/KG (273-304)
[2020-02-22] MEDS: PANTOPRAZOLE 40 MG TABLET PO SCH ×2 (09:42→20:19)
[2020-02-22] MEDS: METOPROLOL TARTRATE 50 MG TABLET PO SCH ×2 (09:42→20:19)
[2020-02-22] MEDS: ASPIRIN EC 81 MG TABLET PO SCH (09:42)
[2020-02-22] MEDS: ENOXAPARIN 60 MG/0.6 ML SYRINGE SUBCUT SCH (09:42)
[2020-02-22] MEDS: CIPROFLOXACIN 500 MG TABLET PO SCH ×2 (09:42→20:19)
[2020-02-22] MEDS: amLODIPine 10 MG TABLET PO SCH (09:42)
[2020-02-22] MEDS: OXYBUTYNIN XL 5 MG TABLET PO SCH (09:42)
[2020-02-22] MEDS: CITALOPRAM 20 MG TABLET PO SCH (09:42)
[2020-02-22] MEDS: ROSUVASTATIN 20 MG TABLET PO SCH (09:42)
[2020-02-22] MEDS: FERROUS SULFATE 325 MG TABLET PO SCH ×3 (09:42→20:19)
[2020-02-22] MEDS: POTASSIUM CHLORIDE 20 MEQ TABLET PO SCH (09:42)
[2020-02-22] MEDS: MAGNESIUM OXIDE 400 MG TABLET PO SCH ×2 (09:42→20:19)
[2020-02-22] MEDS: DESITIN 4OZ/NYSTATIN 15 GRAM MIXTURE PASTE TOP SCH ×2 (09:43→20:19)
[2020-02-22] MEDS: ACETAMINOPHEN 325 MG TABLET PO PRN (20:19)
[2020-02-22] MEDS: ONDANSETRON 4 MG/2 ML VIAL IV PRN (20:52)
[2020-02-23] MEDS: AMPICILLIN/SULBACTAM 3,000 MG in SODIUM CHLORIDE 0.9% 100 ML IV SCH ×4 (01:09→18:12)
[2020-02-23] MEDS: methylPREDNISolone SOD SUC 40 MG/1 ML VIAL IV SCH ×3 (02:18→18:12)
[2020-02-23] MEDS: ROSUVASTATIN 20 MG TABLET PO SCH (10:01)
[2020-02-23] MEDS: ENOXAPARIN 60 MG/0.6 ML SYRINGE SUBCUT SCH (10:01)
[2020-02-23] MEDS: OXYBUTYNIN XL 5 MG TABLET PO SCH (10:01)
[2020-02-23] MEDS: CITALOPRAM 20 MG TABLET PO SCH (10:01)
[2020-02-23] MEDS: CIPROFLOXACIN 500 MG TABLET PO SCH ×2 (10:01→20:05)
[2020-02-23] MEDS: amLODIPine 10 MG TABLET PO SCH (10:01)
[2020-02-23] MEDS: MAGNESIUM OXIDE 400 MG TABLET PO SCH ×2 (10:02→20:05)
[2020-02-23] MEDS: PANTOPRAZOLE 40 MG TABLET PO SCH ×2 (10:02→20:05)
[2020-02-23] MEDS: POTASSIUM CHLORIDE 20 MEQ TABLET PO SCH (10:02)
[2020-02-23] MEDS: DESITIN 4OZ/NYSTATIN 15 GRAM MIXTURE PASTE TOP SCH ×2 (10:02→20:06)
[2020-02-23] MEDS: METOPROLOL TARTRATE 50 MG TABLET PO SCH ×2 (10:02→20:05)
[2020-02-23] MEDS: FERROUS SULFATE 325 MG TABLET PO SCH ×3 (10:02→20:05)
[2020-02-23] MEDS: ASPIRIN EC 81 MG TABLET PO SCH (10:02)
[2020-02-24] MEDS: methylPREDNISolone SOD SUC 40 MG/1 ML VIAL IV SCH ×3 (02:38→21:21)
[2020-02-24] MEDS: ENOXAPARIN 60 MG/0.6 ML SYRINGE SUBCUT SCH (10:12)
[2020-02-24] MEDS: ASPIRIN EC 81 MG TABLET PO SCH (10:13)
[2020-02-24] MEDS: CIPROFLOXACIN 500 MG TABLET PO SCH ×2 (10:13→21:21)
[2020-02-24] MEDS: ROSUVASTATIN 20 MG TABLET PO SCH (10:13)
[2020-02-24] MEDS: POTASSIUM CHLORIDE 20 MEQ TABLET PO SCH (10:13)
[2020-02-24] MEDS: FERROUS SULFATE 325 MG TABLET PO SCH ×3 (10:13→21:21)
[2020-02-24] MEDS: MAGNESIUM OXIDE 400 MG TABLET PO SCH ×2 (10:13→21:21)
[2020-02-24] MEDS: CITALOPRAM 20 MG TABLET PO SCH (10:13)
[2020-02-24] MEDS: METOPROLOL TARTRATE 50 MG TABLET PO SCH ×2 (10:13→21:21)
[2020-02-24] MEDS: DESITIN 4OZ/NYSTATIN 15 GRAM MIXTURE PASTE TOP SCH ×2 (10:14→21:21)
[2020-02-24] MEDS: PANTOPRAZOLE 40 MG TABLET PO SCH ×2 (10:14→21:21)
[2020-02-24] MEDS: OXYBUTYNIN XL 5 MG TABLET PO SCH (10:14)
[2020-02-24] MEDS: amLODIPine 10 MG TABLET PO SCH (10:14)
[2020-02-25] MEDS: methylPREDNISolone SOD SUC 40 MG/1 ML VIAL IV SCH ×2 (02:50→12:13)
[2020-02-25] MEDS: ROSUVASTATIN 20 MG TABLET PO SCH (09:25)
[2020-02-25] MEDS: METOPROLOL TARTRATE 50 MG TABLET PO SCH (09:25)
[2020-02-25] MEDS: POTASSIUM CHLORIDE 20 MEQ TABLET PO SCH (09:25)
[2020-02-25] MEDS: OXYBUTYNIN XL 5 MG TABLET PO SCH (09:25)
[2020-02-25] MEDS: MAGNESIUM OXIDE 400 MG TABLET PO SCH (09:25)
[2020-02-25] MEDS: FERROUS SULFATE 325 MG TABLET PO SCH ×2 (09:25→14:07)
[2020-02-25] MEDS: amLODIPine 10 MG TABLET PO SCH (09:26)
[2020-02-25] MEDS: ASPIRIN EC 81 MG TABLET PO SCH (09:26)
[2020-02-25] MEDS: ENOXAPARIN 60 MG/0.6 ML SYRINGE SUBCUT SCH (09:26)
[2020-02-25] MEDS: PANTOPRAZOLE 40 MG TABLET PO SCH (09:26)
[2020-02-25] MEDS: CITALOPRAM 20 MG TABLET PO SCH (09:26)
[2020-02-25] MEDS: DESITIN 4OZ/NYSTATIN 15 GRAM MIXTURE PASTE TOP SCH (09:26)
[2020-02-25 16:42] VITALS: BP 111/65
== END 2020-02-25 19:40 | disposition home health service (06) | DRG 720 ==
LOC: EDUNIT# → EDBD → N.ED 01:35 → SUATTDRO 05:14 → N.EDINP 05:14 → N.5E 07:40
PROVIDERS: ADMIT Family Medicine; ATTEND Internal Medicine

== ENCOUNTER 2020-03-07 10:57 | Inpatient (IN) ==
[2020-03-07] MEDS ORDERED: SODIUM CHLORIDE 0.9% 1,000 ML IV STA (11:22)
[2020-03-07 12:39] LABS: Bilirubin,Urine Negative (Negative); Blood, Urine Large mg/dL (Negative); Glucose,Urine (UA) Negative (Negative); Ketones,Urine Negative (Negative); Nitrite,Urine Negative (Negative); Protein,Urine 100 MG/DL; RBC,Urine 1417 /HPF (0-4); Urine Appearance CLOUDY (Clear); Urine Urobilinogen < 2.0 EU/DL (0.2-1.0); WBC,Urine 55653 /HPF (0-6)
[2020-03-07 12:40] LABS: Urine Color Brown (Yellow)
[2020-03-07 13:00] LABS: Basophils # 0.1 10*3/uL (0.0-0.2); Basophils % 0.4 % (0.0-0.8); Eosinophils # 0.5 10*3/uL (0.0-0.87); Eosinophils % 3.4 % (0.00-10.9); Hemoglobin 10.7 GM/DL (12.0-16.0); Immature Granulocytes % 0.4 %; Immature Granulocytes Absolute 0.06 #; Lymphocytes # 2.6 10*3/uL (1.4-4.0); Lymphocytes % 17.1 % (21.3-54.2); Mean Corpuscular HGB Conc 31.5 GM/DL (32-36); Mean Corpuscular Volume 86.5 FL (87-102); Mean Platelet Volume 11.7 FL (9.6-12.0); Monocytes % 5.9 % (1.7-12.7); Neutrophils % 72.8 % (38.7-73.9); Platelet Count 297 T/CUMM (130-400); Red Blood Count 3.93 MC/CUMM (3.8-5.5); Red Cell Distribution Width 18.2 % (9.3-17.3); White Blood Count 15.2 T/CUMM (4-12)
[2020-03-07] MEDS ORDERED: cefTRIAXone 1,000 MG in SODIUM CHLORIDE 0.9% 100 ML IV STA (13:16)
[2020-03-07] MEDS ORDERED: cefTRIAXone 1,000 MG in SYRINGE 1 EACH IV STA (13:18)
[2020-03-07 13:19] LABS: Osmolality,Calculated 277.1 MOS/KG (273-304)
[2020-03-07 13:25] LABS: Potassium 6.1 MMOL/L (3.5-5.1)
[2020-03-07] MEDS ORDERED: ALBUTEROL 2.5 MG/3 ML NEB RESP TX STA (13:25)
[2020-03-07] MEDS ORDERED: SODIUM POLYSTYRENE SULFATE 15 GM/60 ML BOTTLE PO STA (13:36)
[2020-03-07] MEDS ORDERED: GLUCAGON 1 MG VIAL IM PRN (13:40)
[2020-03-07] MEDS ORDERED: DEXTROSE 50% 25 GM/50 ML VIAL IV PRN (13:40)
[2020-03-07] MEDS ORDERED: SODIUM CHLORIDE 0.9% 100 ML IV ONE (13:49)
[2020-03-07] MEDS: ACETAMINOPHEN 325 MG TABLET PO PRN (15:44)
[2020-03-07] MEDS: ONDANSETRON 4 MG/2 ML VIAL IV PRN ×2 (18:39→22:43)
[2020-03-07] MEDS ORDERED: SODIUM POLYSTYRENE SULFATE 15 GM/60 ML BOTTLE PO ONE (19:45)
[2020-03-08] MEDS: cefTRIAXone 1,000 MG in SYRINGE 1 EACH IV SCH (08:51)
[2020-03-08 09:47] LABS: Basophils # 0.1 10*3/uL (0.0-0.2); Basophils % 0.4 % (0.0-0.8); Eosinophils # 0.2 10*3/uL (0.0-0.87); Eosinophils % 1.2 % (0.00-10.9); Hematocrit 27.8 VOL% (35.7-47.0); Immature Granulocytes % 0.6 %; Immature Granulocytes Absolute 0.09 #; Lymphocytes # 2.4 10*3/uL (1.4-4.0); Lymphocytes % 15.3 % (21.3-54.2); Mean Corpuscular HGB Conc 30.9 GM/DL (32-36); Mean Corpuscular Volume 87.1 FL (87-102); Monocytes % 6.5 % (1.7-12.7); Platelet Count 287 T/CUMM (130-400); Red Blood Count 3.19 MC/CUMM (3.8-5.5); Red Cell Distribution Width 18.1 % (9.3-17.3); White Blood Count 15.9 T/CUMM (4-12)
[2020-03-08 09:59] LABS: Hemoglobin 8.6 GM/DL (12.0-16.0)
[2020-03-08 10:34] LABS: Calcium 8.3 MG/DL (8.5-10.1); Osmolality,Calculated 272.4 MOS/KG (273-304); Risk Ratio 1.9; Thyroid Stimulating Hormone 0.967 uIU/ml (0.358-3.74); VLDL CHOLESTEROL 13.6 MG/DL
[2020-03-08] MEDS: CIPROFLOXACIN 0.3% OPH SOLN 2.5 ML BOTTLE LEFT EYE SCH ×4 (12:44→22:00)
[2020-03-08] MEDS ORDERED: SODIUM POLYSTYRENE SULFATE 15 GM/60 ML BOTTLE PO ONE (12:46)
[2020-03-08] MEDS: SODIUM BICARB INJ 150 MEQ in STERILE WATER INJ 850 ML IV SCH (15:15)
[2020-03-08] MEDS: ACETAMINOPHEN 325 MG TABLET PO PRN (21:08)
[2020-03-09] MEDS: SODIUM BICARB INJ 150 MEQ in STERILE WATER INJ 850 ML IV SCH ×4 (04:44→19:57)
[2020-03-09] MEDS: CIPROFLOXACIN 0.3% OPH SOLN 2.5 ML BOTTLE LEFT EYE SCH ×6 (04:45→21:47)
[2020-03-09 06:00] LABS: Basophils % 0.3 % (0.0-0.8); Eosinophils # 0.5 10*3/uL (0.0-0.87); Eosinophils % 3.9 % (0.00-10.9); Hematocrit 28.2 VOL% (35.7-47.0); Hemoglobin 8.7 GM/DL (12.0-16.0); Immature Granulocytes % 0.5 %; Immature Granulocytes Absolute 0.06 #; Lymphocytes # 2.5 10*3/uL (1.4-4.0); Lymphocytes % 19.1 % (21.3-54.2); Mean Corpuscular HGB Conc 30.9 GM/DL (32-36); Mean Corpuscular Volume 87.3 FL (87-102); Mean Platelet Volume 11.7 FL (9.6-12.0); Monocytes % 6.8 % (1.7-12.7); Neutrophils % 69.4 % (38.7-73.9); Platelet Count 220 T/CUMM (130-400); Red Blood Count 3.23 MC/CUMM (3.8-5.5); Red Cell Distribution Width 18.1 % (9.3-17.3); White Blood Count 13.2 T/CUMM (4-12)
[2020-03-09 06:25] LABS: Calcium 8.3 MG/DL (8.5-10.1); Potassium 4.5 MMOL/L (3.5-5.1)
[2020-03-09] MEDS ORDERED: MAGNESIUM SULF RIDER 4 GM in PREMIX 1 EACH IV ONE (08:24)
[2020-03-09] MEDS: cefTRIAXone 1,000 MG in SYRINGE 1 EACH IV SCH (09:07)
[2020-03-09] MEDS ORDERED: ALBUTEROL/IPRATROPIUM 3 ML NEB RESP TX ONE (12:40)
[2020-03-09] MEDS ORDERED: ALPRAZolam 0.25 MG TABLET PO ONE (12:42)
[2020-03-09] MEDS: CITALOPRAM 20 MG TABLET PO SCH (12:50)
[2020-03-09] MEDS: ASPIRIN EC 81 MG TABLET PO SCH (12:51)
[2020-03-09] MEDS: POTASSIUM CHLORIDE 20 MEQ TABLET PO SCH (12:51)
[2020-03-09] MEDS: amLODIPine 10 MG TABLET PO SCH (12:51)
[2020-03-09] MEDS: ROSUVASTATIN 20 MG TABLET PO SCH (12:51)
[2020-03-09] MEDS: METOPROLOL TARTRATE 50 MG TABLET PO SCH ×2 (12:51→21:46)
[2020-03-09] MEDS: PANTOPRAZOLE 40 MG TABLET PO SCH ×2 (12:51→21:42)
[2020-03-09] MEDS: APIXABAN 2.5 MG TABLET PO SCH ×2 (12:51→21:42)
[2020-03-09] MEDS: FERROUS SULFATE 325 MG TABLET PO SCH ×2 (15:40→21:43)
[2020-03-09] MEDS: SODIUM BICARBONATE 650 MG TABLET PO SCH (21:43)
[2020-03-10] MEDS: SODIUM BICARB INJ 150 MEQ in STERILE WATER INJ 850 ML IV SCH ×3 (00:33→15:45)
[2020-03-10] MEDS: CIPROFLOXACIN 0.3% OPH SOLN 2.5 ML BOTTLE LEFT EYE SCH ×6 (02:08→23:27)
[2020-03-10 06:39] LABS: Basophils % 0.3 % (0.0-0.8); Eosinophils # 0.6 10*3/uL (0.0-0.87); Eosinophils % 6.7 % (0.00-10.9); Hematocrit 22.8 VOL% (35.7-47.0); Hemoglobin 7.3 GM/DL (12.0-16.0); Immature Granulocytes % 0.4 %; Immature Granulocytes Absolute 0.04 #; Lymphocytes % 22.1 % (21.3-54.2); Mean Corpuscular Volume 85.1 FL (87-102); Mean Platelet Volume 11.7 FL (9.6-12.0); Monocytes % 5.6 % (1.7-12.7); Neutrophils % 64.9 % (38.7-73.9); Platelet Count 200 T/CUMM (130-400); Red Blood Count 2.68 MC/CUMM (3.8-5.5); Red Cell Distribution Width 17.4 % (9.3-17.3)
[2020-03-10 06:57] LABS: Calcium 7.6 MG/DL (8.5-10.1); Calcium 7.7 MG/DL (8.5-10.1); Osmolality,Calculated 274.1 MOS/KG (273-304); Osmolality,Calculated 280.7 MOS/KG (273-304); Potassium 3.2 MMOL/L (3.5-5.1)
[2020-03-10] MEDS: PANTOPRAZOLE 40 MG TABLET PO SCH ×2 (09:59→23:26)
[2020-03-10] MEDS: SODIUM BICARBONATE 650 MG TABLET PO SCH ×2 (09:59→23:24)
[2020-03-10] MEDS: ROSUVASTATIN 20 MG TABLET PO SCH (09:59)
[2020-03-10] MEDS: ASPIRIN EC 81 MG TABLET PO SCH (09:59)
[2020-03-10] MEDS: CITALOPRAM 20 MG TABLET PO SCH (09:59)
[2020-03-10] MEDS: APIXABAN 2.5 MG TABLET PO SCH ×2 (10:00→23:25)
[2020-03-10] MEDS: amLODIPine 10 MG TABLET PO SCH (10:00)
[2020-03-10] MEDS: FERROUS SULFATE 325 MG TABLET PO SCH ×3 (10:00→23:25)
[2020-03-10] MEDS: METOPROLOL TARTRATE 50 MG TABLET PO SCH ×2 (10:00→23:26)
[2020-03-10] MEDS: cefTRIAXone 1,000 MG in SYRINGE 1 EACH IV SCH (10:01)
[2020-03-10] MEDS: POTASSIUM CHLORIDE 20 MEQ TABLET PO SCH (10:12)
[2020-03-11] MEDS: SODIUM BICARB INJ 150 MEQ in STERILE WATER INJ 850 ML IV SCH ×2 (01:56→06:54)
[2020-03-11] MEDS: CIPROFLOXACIN 0.3% OPH SOLN 2.5 ML BOTTLE LEFT EYE SCH ×6 (01:57→21:34)
[2020-03-11 06:02] LABS: Basophils % 0.4 % (0.0-0.8); Eosinophils # 0.7 10*3/uL (0.0-0.87); Hematocrit 26.8 VOL% (35.7-47.0); Hemoglobin 8.5 GM/DL (12.0-16.0); Immature Granulocytes % 0.4 %; Immature Granulocytes Absolute 0.03 #; Lymphocytes # 1.8 10*3/uL (1.4-4.0); Lymphocytes % 23.8 % (21.3-54.2); Mean Corpuscular HGB Conc 31.7 GM/DL (32-36); Mean Corpuscular Volume 85.4 FL (87-102); Mean Platelet Volume 11.9 FL (9.6-12.0); Monocytes % 4.5 % (1.7-12.7); Neutrophils % 61.9 % (38.7-73.9); Platelet Count 229 T/CUMM (130-400); Red Blood Count 3.14 MC/CUMM (3.8-5.5); Red Cell Distribution Width 17.7 % (9.3-17.3); White Blood Count 7.5 T/CUMM (4-12)
[2020-03-11 06:20] LABS: Calcium 7.9 MG/DL (8.5-10.1); Osmolality,Calculated 275.7 MOS/KG (273-304); Potassium 3.1 MMOL/L (3.5-5.1)
[2020-03-11] MEDS ORDERED: POTASSIUM CHLORIDE 20 MEQ/15 ML UDCUP PER TUBE PRN (07:40)
[2020-03-11] MEDS: METOPROLOL TARTRATE 50 MG TABLET PO SCH ×3 (10:00→22:45)
[2020-03-11] MEDS: CITALOPRAM 20 MG TABLET PO SCH (10:00)
[2020-03-11] MEDS: ROSUVASTATIN 20 MG TABLET PO SCH (10:00)
[2020-03-11] MEDS: APIXABAN 2.5 MG TABLET PO SCH ×2 (10:00→21:32)
[2020-03-11] MEDS: FERROUS SULFATE 325 MG TABLET PO SCH ×3 (10:00→21:33)
[2020-03-11] MEDS: cefTRIAXone 1,000 MG in SYRINGE 1 EACH IV SCH (10:01)
[2020-03-11] MEDS: PANTOPRAZOLE 40 MG TABLET PO SCH ×3 (10:01→22:45)
[2020-03-11] MEDS: SODIUM BICARBONATE 650 MG TABLET PO SCH ×2 (10:01→21:32)
[2020-03-11] MEDS: ASPIRIN EC 81 MG TABLET PO SCH (10:01)
[2020-03-11] MEDS: POTASSIUM CHLORIDE 20 MEQ TABLET PO SCH (10:01)
[2020-03-11] MEDS: amLODIPine 10 MG TABLET PO SCH (10:01)
[2020-03-11] MEDS: SODIUM CHLORIDE 0.9% 1,000 ML IV SCH (14:26)
[2020-03-12] MEDS: CIPROFLOXACIN 0.3% OPH SOLN 2.5 ML BOTTLE LEFT EYE SCH ×6 (01:26→22:45)
[2020-03-12] MEDS: SODIUM CHLORIDE 0.9% 1,000 ML IV SCH ×3 (05:04→20:36)
[2020-03-12 06:30] LABS: Basophils % 0.3 % (0.0-0.8); Eosinophils # 0.9 10*3/uL (0.0-0.87); Eosinophils % 12.7 % (0.00-10.9); Hematocrit 27.2 VOL% (35.7-47.0); Hemoglobin 8.6 GM/DL (12.0-16.0); Immature Granulocytes % 0.3 %; Immature Granulocytes Absolute 0.02 #; Lymphocytes # 2.1 10*3/uL (1.4-4.0); Lymphocytes % 28.8 % (21.3-54.2); Mean Corpuscular HGB Conc 31.6 GM/DL (32-36); Mean Corpuscular Volume 86.3 FL (87-102); Mean Platelet Volume 11.2 FL (9.6-12.0); Monocytes % 7.2 % (1.7-12.7); Neutrophils % 50.7 % (38.7-73.9); Platelet Count 216 T/CUMM (130-400); Red Blood Count 3.15 MC/CUMM (3.8-5.5); Red Cell Distribution Width 17.5 % (9.3-17.3); White Blood Count 7.2 T/CUMM (4-12)
[2020-03-12 06:48] LABS: Calcium 7.9 MG/DL (8.5-10.1); Osmolality,Calculated 280.4 MOS/KG (273-304); Potassium 4.6 MMOL/L (3.5-5.1)
[2020-03-12 06:51] LABS: Eosinophils 11 % (0-10); Hypochromasia 1+; Lymphocytes 22 % (20-55); Microcytosis 1+; Ovalocytes Slight; Platelet Estimate Adequate; Segmented Neutrophils 63 % (50-85); Total Cells Counted 100
[2020-03-12] MEDS ORDERED: MAGNESIUM SULF RIDER 4 GM in PREMIX 1 EACH IV PRN (07:23)
[2020-03-12] MEDS: ROSUVASTATIN 20 MG TABLET PO SCH (09:35)
[2020-03-12] MEDS: SODIUM BICARBONATE 650 MG TABLET PO SCH ×2 (09:35→22:45)
[2020-03-12] MEDS: PANTOPRAZOLE 40 MG TABLET PO SCH (09:36)
[2020-03-12] MEDS: ASPIRIN EC 81 MG TABLET PO SCH (09:36)
[2020-03-12] MEDS: FERROUS SULFATE 325 MG TABLET PO SCH ×3 (09:36→22:45)
[2020-03-12] MEDS: APIXABAN 2.5 MG TABLET PO SCH ×2 (09:36→22:45)
[2020-03-12] MEDS: CITALOPRAM 20 MG TABLET PO SCH (09:36)
[2020-03-12] MEDS: amLODIPine 10 MG TABLET PO SCH (09:37)
[2020-03-12] MEDS: POTASSIUM CHLORIDE 20 MEQ TABLET PO SCH (09:37)
[2020-03-12] MEDS: METOPROLOL TARTRATE 50 MG TABLET PO SCH (09:38)
[2020-03-12] MEDS: cefTRIAXone 1,000 MG in SYRINGE 1 EACH IV SCH (09:38)
[2020-03-12] MEDS: MAGNESIUM SULF RIDER 2 GM in PREMIX 1 EACH IV PRN (10:48)
[2020-03-13] MEDS: CIPROFLOXACIN 0.3% OPH SOLN 2.5 ML BOTTLE LEFT EYE SCH ×6 (01:55→22:01)
[2020-03-13 07:20] LABS: Basophils % 0.4 % (0.0-0.8); Eosinophils # 0.4 10*3/uL (0.0-0.87); Eosinophils % 8.2 % (0.00-10.9); Hemoglobin 8.2 GM/DL (12.0-16.0); Immature Granulocytes % 0.2 %; Immature Granulocytes Absolute 0.01 #; Lymphocytes # 1.5 10*3/uL (1.4-4.0); Lymphocytes % 28.5 % (21.3-54.2); Mean Corpuscular HGB Conc 30.4 GM/DL (32-36); Mean Corpuscular Volume 89.7 FL (87-102); Mean Platelet Volume 10.9 FL (9.6-12.0); Monocytes % 6.9 % (1.7-12.7); Neutrophils % 55.8 % (38.7-73.9); Platelet Count 226 T/CUMM (130-400); Red Blood Count 3.01 MC/CUMM (3.8-5.5); Red Cell Distribution Width 17.9 % (9.3-17.3); White Blood Count 5.4 T/CUMM (4-12)
[2020-03-13 07:43] LABS: Calcium 8.2 MG/DL (8.5-10.1); Osmolality,Calculated 280.3 MOS/KG (273-304); Potassium 5.3 MMOL/L (3.5-5.1)
[2020-03-13] MEDS: PANTOPRAZOLE 40 MG TABLET PO SCH ×2 (09:22→22:47)
[2020-03-13] MEDS: SODIUM BICARBONATE 650 MG TABLET PO SCH ×2 (09:22→22:47)
[2020-03-13] MEDS: METOPROLOL TARTRATE 50 MG TABLET PO SCH ×2 (09:22→22:47)
[2020-03-13] MEDS: FERROUS SULFATE 325 MG TABLET PO SCH ×3 (09:22→22:47)
[2020-03-13] MEDS: CITALOPRAM 20 MG TABLET PO SCH (09:22)
[2020-03-13] MEDS: APIXABAN 2.5 MG TABLET PO SCH ×2 (09:23→22:47)
[2020-03-13] MEDS: ROSUVASTATIN 20 MG TABLET PO SCH (09:23)
[2020-03-13] MEDS: ASPIRIN EC 81 MG TABLET PO SCH (09:23)
[2020-03-13] MEDS: POTASSIUM CHLORIDE 20 MEQ TABLET PO SCH (09:25)
[2020-03-13] MEDS: amLODIPine 10 MG TABLET PO SCH (09:25)
[2020-03-13] MEDS: cefTRIAXone 1,000 MG in SYRINGE 1 EACH IV SCH (09:26)
[2020-03-13] MEDS: SODIUM CHLORIDE 0.9% 1,000 ML IV SCH ×2 (13:25→22:36)
[2020-03-14] MEDS: CIPROFLOXACIN 0.3% OPH SOLN 2.5 ML BOTTLE LEFT EYE SCH ×6 (01:14→21:09)
[2020-03-14] MEDS: SODIUM CHLORIDE 0.9% 1,000 ML IV SCH ×2 (03:05→08:40)
[2020-03-14] MEDS: ACETAMINOPHEN 325 MG TABLET PO PRN (05:19)
[2020-03-14 08:41] LABS: Basophils % 0.3 % (0.0-0.8); Eosinophils # 0.8 10*3/uL (0.0-0.87); Eosinophils % 12.5 % (0.00-10.9); Hematocrit 27.3 VOL% (35.7-47.0); Hemoglobin 8.3 GM/DL (12.0-16.0); Immature Granulocytes % 0.3 %; Immature Granulocytes Absolute 0.02 #; Lymphocytes # 2.1 10*3/uL (1.4-4.0); Lymphocytes % 33.6 % (21.3-54.2); Mean Corpuscular HGB Conc 30.4 GM/DL (32-36); Mean Corpuscular Volume 89.2 FL (87-102); Mean Platelet Volume 10.9 FL (9.6-12.0); Monocytes % 6.7 % (1.7-12.7); Neutrophils % 46.6 % (38.7-73.9); Platelet Count 249 T/CUMM (130-400); Red Blood Count 3.06 MC/CUMM (3.8-5.5); White Blood Count 6.3 T/CUMM (4-12)
[2020-03-14 08:58] LABS: Osmolality,Calculated 271.8 MOS/KG (273-304); Potassium 4.9 MMOL/L (3.5-5.1)
[2020-03-14 09:04] LABS: Eosinophils 11 % (0-10); Lymphocytes 22 % (20-55); Segmented Neutrophils 64 % (50-85); Total Cells Counted 100
[2020-03-14 09:05] LABS: Hypochromasia 1+; Microcytosis 1+; Platelet Estimate Adequate
[2020-03-14] MEDS: cefTRIAXone 1,000 MG in SYRINGE 1 EACH IV SCH (10:30)
[2020-03-14] MEDS: METOPROLOL TARTRATE 50 MG TABLET PO SCH ×2 (10:31→21:09)
[2020-03-14] MEDS: ASPIRIN EC 81 MG TABLET PO SCH (10:31)
[2020-03-14] MEDS: amLODIPine 10 MG TABLET PO SCH (10:31)
[2020-03-14] MEDS: ROSUVASTATIN 20 MG TABLET PO SCH (10:31)
[2020-03-14] MEDS: PANTOPRAZOLE 40 MG TABLET PO SCH ×2 (10:31→21:08)
[2020-03-14] MEDS: SODIUM BICARBONATE 650 MG TABLET PO SCH ×2 (10:31→21:08)
[2020-03-14] MEDS: CITALOPRAM 20 MG TABLET PO SCH (10:31)
[2020-03-14] MEDS: APIXABAN 2.5 MG TABLET PO SCH ×2 (10:31→21:08)
[2020-03-14] MEDS: FERROUS SULFATE 325 MG TABLET PO SCH ×3 (10:32→21:09)
[2020-03-14] MEDS ORDERED: TUBERCULIN SKIN TEST 0.1 ML SYRINGE INTRADERM ONE (15:00)
[2020-03-14] MEDS: VITAMIN A & D OINT 113 GM TUBE TOP SCH ×2 (18:31→21:09)
[2020-03-15] MEDS: CIPROFLOXACIN 0.3% OPH SOLN 2.5 ML BOTTLE LEFT EYE SCH ×3 (01:36→11:36)
[2020-03-15] MEDS: ONDANSETRON 4 MG/2 ML VIAL IV PRN (05:54)
[2020-03-15] MEDS: PANTOPRAZOLE 40 MG TABLET PO SCH ×2 (08:27→21:21)
[2020-03-15] MEDS: ASPIRIN EC 81 MG TABLET PO SCH (08:27)
[2020-03-15] MEDS: SODIUM BICARBONATE 650 MG TABLET PO SCH ×2 (08:27→21:20)
[2020-03-15] MEDS: CITALOPRAM 20 MG TABLET PO SCH (08:27)
[2020-03-15] MEDS: APIXABAN 2.5 MG TABLET PO SCH ×2 (08:27→21:20)
[2020-03-15] MEDS: FERROUS SULFATE 325 MG TABLET PO SCH ×3 (08:27→21:21)
[2020-03-15] MEDS: cefTRIAXone 1,000 MG in SYRINGE 1 EACH IV SCH (08:28)
[2020-03-15] MEDS: METOPROLOL TARTRATE 50 MG TABLET PO SCH ×2 (09:51→21:54)
[2020-03-15] MEDS: amLODIPine 10 MG TABLET PO SCH (09:51)
[2020-03-15] MEDS: VITAMIN A & D OINT 113 GM TUBE TOP SCH ×2 (09:51→21:23)
[2020-03-15] MEDS: ROSUVASTATIN 20 MG TABLET PO SCH (12:05)
[2020-03-15] MEDS: POTASSIUM CHLORIDE 20 MEQ TABLET PO SCH (12:05)
[2020-03-16 05:13] LABS: Basophils % 0.5 % (0.0-0.8); Eosinophils # 0.6 10*3/uL (0.0-0.87); Eosinophils % 8.6 % (0.00-10.9); Hematocrit 29.9 VOL% (35.7-47.0); Hemoglobin 8.7 GM/DL (12.0-16.0); Immature Granulocytes % 0.5 %; Immature Granulocytes Absolute 0.03 #; Lymphocytes # 2.8 10*3/uL (1.4-4.0); Lymphocytes % 41.9 % (21.3-54.2); Mean Corpuscular HGB Conc 29.1 GM/DL (32-36); Mean Corpuscular Volume 90.6 FL (87-102); Mean Platelet Volume 10.6 FL (9.6-12.0); Monocytes % 7.1 % (1.7-12.7); Neutrophils % 41.4 % (38.7-73.9); Platelet Count 263 T/CUMM (130-400); Red Cell Distribution Width 18.6 % (9.3-17.3); White Blood Count 6.6 T/CUMM (4-12)
[2020-03-16 05:41] LABS: Calcium 8.2 MG/DL (8.5-10.1)
[2020-03-16] MEDS: POTASSIUM CHLORIDE 20 MEQ TABLET PO SCH (09:05)
[2020-03-16] MEDS: ROSUVASTATIN 20 MG TABLET PO SCH (09:06)
[2020-03-16] MEDS: SODIUM BICARBONATE 650 MG TABLET PO SCH ×2 (09:06→21:08)
[2020-03-16] MEDS: APIXABAN 2.5 MG TABLET PO SCH ×2 (09:06→21:08)
[2020-03-16] MEDS: ASPIRIN EC 81 MG TABLET PO SCH (09:06)
[2020-03-16] MEDS: METOPROLOL TARTRATE 50 MG TABLET PO SCH ×2 (09:06→21:08)
[2020-03-16] MEDS: amLODIPine 10 MG TABLET PO SCH (09:07)
[2020-03-16] MEDS: CITALOPRAM 20 MG TABLET PO SCH (09:07)
[2020-03-16] MEDS: FERROUS SULFATE 325 MG TABLET PO SCH ×3 (09:07→21:08)
[2020-03-16] MEDS: ONDANSETRON 4 MG/2 ML VIAL IV PRN (09:07)
[2020-03-16] MEDS: PANTOPRAZOLE 40 MG TABLET PO SCH ×2 (09:07→21:08)
[2020-03-16] MEDS: VITAMIN A & D OINT 113 GM TUBE TOP SCH ×2 (09:09→21:08)
[2020-03-16] MEDS: SODIUM CHLORIDE 0.9% 1,000 ML IV SCH ×2 (11:44→22:00)
[2020-03-17 06:51] LABS: Calcium 8.1 MG/DL (8.5-10.1); Osmolality,Calculated 267.1 MOS/KG (273-304)
[2020-03-17 07:09] LABS: Basophils % 0.4 % (0.0-0.8); Eosinophils # 0.6 10*3/uL (0.0-0.87); Eosinophils % 8.6 % (0.00-10.9); Hematocrit 32.5 VOL% (35.7-47.0); Hemoglobin 9.3 GM/DL (12.0-16.0); Immature Granulocytes % 0.5 %; Immature Granulocytes Absolute 0.04 #; Lymphocytes # 2.9 10*3/uL (1.4-4.0); Mean Corpuscular HGB Conc 28.6 GM/DL (32-36); Mean Corpuscular Volume 91.8 FL (87-102); Mean Platelet Volume 11.2 FL (9.6-12.0); Monocytes % 7.8 % (1.7-12.7); Neutrophils % 42.7 % (38.7-73.9); Platelet Count 283 T/CUMM (130-400); Red Blood Count 3.54 MC/CUMM (3.8-5.5); Red Cell Distribution Width 18.6 % (9.3-17.3); White Blood Count 7.4 T/CUMM (4-12)
[2020-03-17 07:18] LABS: Hypochromasia 1+; Microcytosis 1+; Platelet Estimate Adequate
[2020-03-17] MEDS: SODIUM CHLORIDE 0.9% 1,000 ML IV SCH ×2 (07:59→21:52)
[2020-03-17] MEDS: CITALOPRAM 20 MG TABLET PO SCH (09:08)
[2020-03-17] MEDS: SODIUM BICARBONATE 650 MG TABLET PO SCH ×2 (09:08→21:45)
[2020-03-17] MEDS: ROSUVASTATIN 20 MG TABLET PO SCH (09:08)
[2020-03-17] MEDS: ASPIRIN EC 81 MG TABLET PO SCH (09:08)
[2020-03-17] MEDS: PANTOPRAZOLE 40 MG TABLET PO SCH ×2 (09:09→21:45)
[2020-03-17] MEDS: APIXABAN 2.5 MG TABLET PO SCH (09:09)
[2020-03-17] MEDS: METOPROLOL TARTRATE 50 MG TABLET PO SCH ×2 (09:09→21:45)
[2020-03-17] MEDS: amLODIPine 10 MG TABLET PO SCH (09:10)
[2020-03-17] MEDS: VITAMIN A & D OINT 113 GM TUBE TOP SCH (09:10)
[2020-03-17] MEDS: FERROUS SULFATE 325 MG TABLET PO SCH ×3 (09:27→21:45)
[2020-03-17] MEDS: METOCLOPRAMIDE 10 MG/2 ML VIAL IV SCH ×2 (09:59→21:47)
[2020-03-17] MEDS: HEPARIN 5,000 UNIT/1 ML VIAL SUBCUT SCH ×2 (11:46→21:51)
[2020-03-17] MEDS: DESITIN 4OZ/NYSTATIN 15 GRAM MIXTURE PASTE TOP SCH ×2 (13:18→21:51)
[2020-03-17] MEDS ORDERED: FLUCONAZOLE INJ 200 MG in PREMIX 1 EACH IV ONE (14:30)
[2020-03-17] MEDS ORDERED: NYSTATIN 500,000 UNIT/5 ML UDCUP SWISH/SWAL SCH (17:00)
[2020-03-18] MEDS: SODIUM CHLORIDE 0.9% 1,000 ML IV SCH ×3 (04:18→20:17)
[2020-03-18] MEDS: HEPARIN 5,000 UNIT/1 ML VIAL SUBCUT SCH ×3 (04:41→20:36)
[2020-03-18] MEDS: ACETAMINOPHEN 325 MG TABLET PO PRN ×4 (04:41→20:16)
[2020-03-18 05:51] LABS: Alanine Aminotransferase 18 U/L (13-56); Albumin 1.7 G/DL (3.4-5.0); Alkaline Phosphatase 569 U/L (45-117); Aspartate Amino Transferase 26 U/L (0-37); Bilirubin,Direct < 0.100 MG/DL (0.0-0.20); Bilirubin,Indirect 0.3 MG/DL (0.0-1.0); Blood Urea Nitrogen 14 MG/DL (7-18); Calcium 7.9 MG/DL (8.5-10.1); Carbon Dioxide 20 MMOL/L (21-32); Estimated Glom Filtration Rate 30 ML/MIN; Glucose 91 MG/DL (74-106); Osmolality,Calculated 275.7 MOS/KG (273-304); Potassium 4.5 MMOL/L (3.5-5.1); Sodium 138 MMOL/L (136-145); Total Protein 5.6 G/DL (6.4-8.3)
[2020-03-18 05:53] LABS: Basophils % 0.3 % (0.0-0.8); Eosinophils # 0.6 10*3/uL (0.0-0.87); Eosinophils % 8.4 % (0.00-10.9); Hematocrit 28.9 VOL% (35.7-47.0); Hemoglobin 8.5 GM/DL (12.0-16.0); Immature Granulocytes % 0.5 %; Immature Granulocytes Absolute 0.04 #; Lymphocytes % 39.4 % (21.3-54.2); Mean Corpuscular HGB Conc 29.4 GM/DL (32-36); Mean Corpuscular Volume 88.7 FL (87-102); Mean Platelet Volume 11.2 FL (9.6-12.0); Monocytes % 7.2 % (1.7-12.7); Neutrophils % 44.2 % (38.7-73.9); Platelet Count 296 T/CUMM (130-400); Red Blood Count 3.26 MC/CUMM (3.8-5.5); Red Cell Distribution Width 18.8 % (9.3-17.3); White Blood Count 7.5 T/CUMM (4-12)
[2020-03-18] MEDS: ONDANSETRON 4 MG/2 ML VIAL IV PRN ×2 (07:39→23:57)
[2020-03-18] MEDS: FERROUS SULFATE 325 MG TABLET PO SCH ×3 (08:58→22:06)
[2020-03-18] MEDS: ASPIRIN EC 81 MG TABLET PO SCH (08:58)
[2020-03-18] MEDS: DESITIN 4OZ/NYSTATIN 15 GRAM MIXTURE PASTE TOP SCH ×2 (08:59→22:08)
[2020-03-18] MEDS: SODIUM BICARBONATE 650 MG TABLET PO SCH ×2 (08:59→22:06)
[2020-03-18] MEDS: amLODIPine 10 MG TABLET PO SCH (08:59)
[2020-03-18] MEDS: PANTOPRAZOLE 40 MG TABLET PO SCH ×2 (08:59→22:06)
[2020-03-18] MEDS: METOCLOPRAMIDE 10 MG/2 ML VIAL IV SCH ×2 (08:59→22:08)
[2020-03-18] MEDS: METOPROLOL TARTRATE 50 MG TABLET PO SCH ×2 (08:59→22:04)
[2020-03-18] MEDS: ROSUVASTATIN 20 MG TABLET PO SCH (08:59)
[2020-03-18] MEDS: POTASSIUM CHLORIDE 20 MEQ TABLET PO SCH (09:01)
[2020-03-18] MEDS ORDERED: SODIUM CHLORIDE 0.9% 500 ML IV ONE ×2 (14:11→19:58)
[2020-03-18] MEDS: FLUCONAZOLE INJ 100 MG in IV BAG 1 EACH IV SCH (14:53)
[2020-03-18] MEDS: MAGNESIUM SULF RIDER 2 GM in PREMIX 1 EACH IV PRN (16:24)
[2020-03-19] MEDS: SODIUM CHLORIDE 0.9% 1,000 ML IV SCH ×3 (00:12→15:45)
[2020-03-19 05:20] LABS: Basophils # 0.1 10*3/uL (0.0-0.2); Basophils % 0.6 % (0.0-0.8); Eosinophils # 0.5 10*3/uL (0.0-0.87); Eosinophils % 5.5 % (0.00-10.9); Hematocrit 26.2 VOL% (35.7-47.0); Hemoglobin 8.1 GM/DL (12.0-16.0); Immature Granulocytes % 0.6 %; Immature Granulocytes Absolute 0.05 #; Lymphocytes % 35.3 % (21.3-54.2); Mean Corpuscular HGB Conc 30.9 GM/DL (32-36); Mean Corpuscular Volume 86.8 FL (87-102); Mean Platelet Volume 11.6 FL (9.6-12.0); Monocytes % 7.9 % (1.7-12.7); Neutrophils % 50.1 % (38.7-73.9); Platelet Count 257 T/CUMM (130-400); Red Blood Count 3.02 MC/CUMM (3.8-5.5); White Blood Count 8.4 T/CUMM (4-12)
[2020-03-19 05:35] LABS: Alanine Aminotransferase 18 U/L (13-56); Albumin 1.3 G/DL (3.4-5.0); Alkaline Phosphatase 485 U/L (45-117); Aspartate Amino Transferase 32 U/L (0-37); Bilirubin,Direct < 0.100 MG/DL (0.0-0.20); Bilirubin,Indirect 0.3 MG/DL (0.0-1.0); Bilirubin,Total < 0.39 MG/DL (0.2-1.0); Blood Urea Nitrogen 13 MG/DL (7-18); Calcium 7.6 MG/DL (8.5-10.1); Carbon Dioxide 18 MMOL/L (21-32); Estimated Glom Filtration Rate 25 ML/MIN; Glucose 79 MG/DL (74-106); Osmolality,Calculated 275.5 MOS/KG (273-304); Potassium 4.9 MMOL/L (3.5-5.1); Sodium 139 MMOL/L (136-145)
[2020-03-19] MEDS ORDERED: LACTATED RINGERS 1,000 ML IV SCH (08:00)
[2020-03-19] MEDS ORDERED: DOCUSATE SODIUM 100 MG CAPSULE PO PRN (10:14)
[2020-03-19] MEDS ORDERED: fentaNYL 100 MCG/2 ML VIAL ONE (10:47)
[2020-03-19] MEDS ORDERED: propofoL 200 MG/20 ML VIAL IV ONE (11:12)
[2020-03-19] MEDS ORDERED: LIDOCAINE 2% 5 ML VIAL ONE (11:12)
[2020-03-19] MEDS ORDERED: ONDANSETRON 4 MG/2 ML VIAL ONE (11:12)
[2020-03-19] MEDS ORDERED: METOPROLOL TARTRATE 5 MG/5 ML VIAL IV ONE (11:22)
[2020-03-19] MEDS ORDERED: GLUCAGON 1 MG VIAL IM PRN (12:16)
[2020-03-19] MEDS: amLODIPine 10 MG TABLET PO SCH (13:07)
[2020-03-19] MEDS: FERROUS SULFATE 325 MG TABLET PO SCH ×3 (13:07→20:54)
[2020-03-19] MEDS: ROSUVASTATIN 20 MG TABLET PO SCH (13:07)
[2020-03-19] MEDS: PANTOPRAZOLE 40 MG TABLET PO SCH ×2 (13:07→20:54)
[2020-03-19] MEDS: ASPIRIN EC 81 MG TABLET PO SCH (13:07)
[2020-03-19] MEDS: POTASSIUM CHLORIDE 20 MEQ TABLET PO SCH (13:07)
[2020-03-19] MEDS: METOPROLOL TARTRATE 50 MG TABLET PO SCH ×2 (13:07→20:54)
[2020-03-19] MEDS: DESITIN 4OZ/NYSTATIN 15 GRAM MIXTURE PASTE TOP SCH ×2 (13:08→20:58)
[2020-03-19] MEDS: SODIUM BICARBONATE 650 MG TABLET PO SCH ×2 (13:08→20:53)
[2020-03-19] MEDS: METOCLOPRAMIDE 10 MG/2 ML VIAL IV SCH ×2 (13:12→21:00)
[2020-03-19] MEDS: FLUCONAZOLE INJ 100 MG in IV BAG 1 EACH IV SCH (14:42)
[2020-03-20] MEDS: SODIUM CHLORIDE 0.9% 1,000 ML IV SCH ×4 (02:42→18:45)
[2020-03-20 05:38] LABS: Basophils # 0.1 10*3/uL (0.0-0.2); Basophils % 0.7 % (0.0-0.8); Eosinophils # 0.3 10*3/uL (0.0-0.87); Eosinophils % 3.8 % (0.00-10.9); Hematocrit 24.4 VOL% (35.7-47.0); Hemoglobin 7.6 GM/DL (12.0-16.0); Immature Granulocytes % 0.6 %; Immature Granulocytes Absolute 0.05 #; Lymphocytes # 2.7 10*3/uL (1.4-4.0); Lymphocytes % 30.3 % (21.3-54.2); Mean Corpuscular HGB Conc 31.1 GM/DL (32-36); Mean Corpuscular Volume 85.6 FL (87-102); Mean Platelet Volume 11.2 FL (9.6-12.0); Monocytes % 6.5 % (1.7-12.7); Neutrophils % 58.1 % (38.7-73.9); Platelet Count 266 T/CUMM (130-400); Red Blood Count 2.85 MC/CUMM (3.8-5.5); Red Cell Distribution Width 19.2 % (9.3-17.3)
[2020-03-20 06:03] LABS: Calcium 7.7 MG/DL (8.5-10.1); Osmolality,Calculated 273.7 MOS/KG (273-304); Potassium 5.2 MMOL/L (3.5-5.1)
[2020-03-20] MEDS: ASPIRIN EC 81 MG TABLET PO SCH (09:00)
[2020-03-20] MEDS: METOPROLOL TARTRATE 50 MG TABLET PO SCH ×2 (09:00→21:33)
[2020-03-20] MEDS: ROSUVASTATIN 20 MG TABLET PO SCH (09:00)
[2020-03-20] MEDS: POTASSIUM CHLORIDE 20 MEQ TABLET PO SCH (09:00)
[2020-03-20] MEDS: FERROUS SULFATE 325 MG TABLET PO SCH ×3 (09:00→21:09)
[2020-03-20] MEDS: PANTOPRAZOLE 40 MG TABLET PO SCH ×2 (09:01→21:09)
[2020-03-20] MEDS: amLODIPine 10 MG TABLET PO SCH (09:01)
[2020-03-20] MEDS: METOCLOPRAMIDE 10 MG/2 ML VIAL IV SCH ×2 (09:01→21:10)
[2020-03-20] MEDS: SODIUM BICARBONATE 650 MG TABLET PO SCH ×2 (09:01→21:09)
[2020-03-20] MEDS: DESITIN 4OZ/NYSTATIN 15 GRAM MIXTURE PASTE TOP SCH ×2 (09:01→21:33)
[2020-03-20] MEDS ORDERED: SODIUM POLYSTYRENE SULFATE 15 GM/60 ML BOTTLE PO STA (10:12)
[2020-03-20 11:59] LABS: % Iron Saturation 101.6 % (18-50)
[2020-03-20 17:52] LABS: Bilirubin,Urine Negative (Negative); Blood, Urine Large mg/dL (Negative); Glucose,Urine (UA) Negative (Negative); Ketones,Urine Negative (Negative); Mucus,Urine Occasional /LPF (Occasional); Nitrite,Urine Negative (Negative); Protein,Urine 100 MG/DL; RBC,Urine 91 /HPF (0-4); Urine Appearance CLOUDY (Clear); Urine Color Yellow (Yellow); Urine Specific Gravity 1.013 (1.001-1.035); Urine Urobilinogen < 2.0 EU/DL (0.2-1.0); WBC,Urine 463 /HPF (0-6)
[2020-03-20] MEDS: MAGNESIUM SULF RIDER 2 GM in PREMIX 1 EACH IV PRN (19:00)
[2020-03-21] MEDS: SODIUM CHLORIDE 0.9% 1,000 ML IV SCH ×3 (01:30→21:05)
[2020-03-21 07:15] LABS: Basophils # 0.1 10*3/uL (0.0-0.2); Basophils % 0.8 % (0.0-0.8); Eosinophils # 0.2 10*3/uL (0.0-0.87); Hematocrit 26.4 VOL% (35.7-47.0); Hemoglobin 8.1 GM/DL (12.0-16.0); Immature Granulocytes % 0.7 %; Immature Granulocytes Absolute 0.04 #; Lymphocytes # 2.1 10*3/uL (1.4-4.0); Lymphocytes % 33.8 % (21.3-54.2); Mean Corpuscular HGB Conc 30.7 GM/DL (32-36); Mean Platelet Volume 11.4 FL (9.6-12.0); Monocytes % 8.3 % (1.7-12.7); Neutrophils % 52.4 % (38.7-73.9); Platelet Count 278 T/CUMM (130-400); Red Cell Distribution Width 19.4 % (9.3-17.3); White Blood Count 6.1 T/CUMM (4-12)
[2020-03-21 07:35] LABS: Calcium 7.9 MG/DL (8.5-10.1); Osmolality,Calculated 275.4 MOS/KG (273-304); Potassium 4.9 MMOL/L (3.5-5.1)
[2020-03-21] MEDS: METOPROLOL TARTRATE 50 MG TABLET PO SCH ×2 (08:50→22:58)
[2020-03-21] MEDS: PANTOPRAZOLE 40 MG TABLET PO SCH ×2 (08:50→20:42)
[2020-03-21] MEDS: ROSUVASTATIN 20 MG TABLET PO SCH (08:50)
[2020-03-21] MEDS: amLODIPine 10 MG TABLET PO SCH (08:50)
[2020-03-21] MEDS: ASPIRIN EC 81 MG TABLET PO SCH (08:50)
[2020-03-21] MEDS: SODIUM BICARBONATE 650 MG TABLET PO SCH ×2 (08:50→20:42)
[2020-03-21] MEDS: METOCLOPRAMIDE 10 MG/2 ML VIAL IV SCH ×2 (08:51→20:51)
[2020-03-21] MEDS: FERROUS SULFATE 325 MG TABLET PO SCH ×3 (08:51→20:42)
[2020-03-21] MEDS: DESITIN 4OZ/NYSTATIN 15 GRAM MIXTURE PASTE TOP SCH ×2 (08:51→20:49)
[2020-03-21] MEDS: CIPROFLOXACIN 100 MG/ML 100 ML/BOTTLE PO SCH (20:42)
[2020-03-22] MEDS: SODIUM CHLORIDE 0.9% 1,000 ML IV SCH ×5 (00:28→18:48)
[2020-03-22 07:53] LABS: Basophils # 0.1 10*3/uL (0.0-0.2); Basophils % 0.9 % (0.0-0.8); Eosinophils # 0.2 10*3/uL (0.0-0.87); Eosinophils % 3.1 % (0.00-10.9); Hematocrit 22.1 VOL% (35.7-47.0); Hemoglobin 6.9 GM/DL (12.0-16.0); Immature Granulocytes % 0.7 %; Immature Granulocytes Absolute 0.04 #; Lymphocytes # 2.4 10*3/uL (1.4-4.0); Mean Corpuscular HGB Conc 31.2 GM/DL (32-36); Mean Corpuscular Volume 85.3 FL (87-102); Monocytes % 8.7 % (1.7-12.7); Neutrophils % 42.6 % (38.7-73.9); Platelet Count 300 T/CUMM (130-400); Red Blood Count 2.59 MC/CUMM (3.8-5.5); Red Cell Distribution Width 19.5 % (9.3-17.3); White Blood Count 5.4 T/CUMM (4-12)
[2020-03-22 08:53] LABS: Calcium 7.7 MG/DL (8.5-10.1); Potassium 4.3 MMOL/L (3.5-5.1)
[2020-03-22] MEDS: FERROUS SULFATE 325 MG TABLET PO SCH ×3 (08:58→21:53)
[2020-03-22] MEDS: ASPIRIN EC 81 MG TABLET PO SCH (08:58)
[2020-03-22] MEDS: PANTOPRAZOLE 40 MG TABLET PO SCH ×2 (08:59→21:53)
[2020-03-22] MEDS: METOCLOPRAMIDE 10 MG/2 ML VIAL IV SCH ×2 (08:59→21:56)
[2020-03-22] MEDS: METOPROLOL TARTRATE 50 MG TABLET PO SCH ×2 (08:59→21:53)
[2020-03-22] MEDS: DESITIN 4OZ/NYSTATIN 15 GRAM MIXTURE PASTE TOP SCH ×2 (08:59→21:58)
[2020-03-22] MEDS: SODIUM BICARBONATE 650 MG TABLET PO SCH ×2 (08:59→21:53)
[2020-03-22] MEDS: ROSUVASTATIN 20 MG TABLET PO SCH (08:59)
[2020-03-22] MEDS: amLODIPine 10 MG TABLET PO SCH (08:59)
[2020-03-22] MEDS: CIPROFLOXACIN 100 MG/ML 100 ML/BOTTLE PO SCH ×2 (09:00→21:58)
[2020-03-22] MEDS ORDERED: SODIUM CHLORIDE 0.9% 1,000 ML IV PRN (10:43)
[2020-03-22 19:29] LABS: Hematocrit 31.3 VOL% (35.7-47.0)
[2020-03-23] MEDS: SODIUM CHLORIDE 0.9% 1,000 ML IV SCH ×3 (01:31→21:40)
[2020-03-23] MEDS: DEXTROSE 50% 25 GM/50 ML VIAL IV PRN ×2 (05:04→09:20)
[2020-03-23 07:29] LABS: Calcium 7.4 MG/DL (8.5-10.1); Osmolality,Calculated 280.1 MOS/KG (273-304); Potassium 3.8 MMOL/L (3.5-5.1)
[2020-03-23 08:37] LABS: Basophils # 0.1 10*3/uL (0.0-0.2); Basophils % 0.7 % (0.0-0.8); Eosinophils # 0.2 10*3/uL (0.0-0.87); Eosinophils % 2.5 % (0.00-10.9); Hemoglobin 10.2 GM/DL (12.0-16.0); Immature Granulocytes % 0.4 %; Immature Granulocytes Absolute 0.03 #; Lymphocytes # 2.5 10*3/uL (1.4-4.0); Mean Corpuscular HGB Conc 31.9 GM/DL (32-36); Mean Corpuscular Volume 87.4 FL (87-102); Mean Platelet Volume 11.5 FL (9.6-12.0); Monocytes % 10.7 % (1.7-12.7); Neutrophils % 51.7 % (38.7-73.9); Platelet Count 292 T/CUMM (130-400); Red Blood Count 3.66 MC/CUMM (3.8-5.5); Red Cell Distribution Width 18.3 % (9.3-17.3); White Blood Count 7.2 T/CUMM (4-12)
[2020-03-23] MEDS: PANTOPRAZOLE 40 MG TABLET PO SCH ×2 (09:18→21:36)
[2020-03-23] MEDS: ROSUVASTATIN 20 MG TABLET PO SCH (09:18)
[2020-03-23] MEDS: SODIUM BICARBONATE 650 MG TABLET PO SCH ×2 (09:18→21:36)
[2020-03-23] MEDS: ASPIRIN EC 81 MG TABLET PO SCH (09:19)
[2020-03-23] MEDS: METOCLOPRAMIDE 10 MG/2 ML VIAL IV SCH ×2 (09:19→21:42)
[2020-03-23] MEDS: CIPROFLOXACIN 100 MG/ML 100 ML/BOTTLE PO SCH ×2 (09:19→21:40)
[2020-03-23] MEDS: amLODIPine 10 MG TABLET PO SCH (09:19)
[2020-03-23] MEDS: FERROUS SULFATE 325 MG TABLET PO SCH ×3 (09:19→21:36)
[2020-03-23] MEDS: METOPROLOL TARTRATE 50 MG TABLET PO SCH ×2 (09:19→21:36)
[2020-03-23] MEDS: DESITIN 4OZ/NYSTATIN 15 GRAM MIXTURE PASTE TOP SCH ×2 (09:19→21:45)
[2020-03-24] MEDS: SODIUM CHLORIDE 0.9% 1,000 ML IV SCH ×6 (02:30→23:11)
[2020-03-24 06:37] LABS: Basophils % 0.7 % (0.0-0.8); Eosinophils # 0.1 10*3/uL (0.0-0.87); Eosinophils % 2.4 % (0.00-10.9); Hematocrit 31.2 VOL% (35.7-47.0); Hemoglobin 10.4 GM/DL (12.0-16.0); Immature Granulocytes % 0.3 %; Immature Granulocytes Absolute 0.02 #; Lymphocytes % 34.4 % (21.3-54.2); Mean Corpuscular HGB Conc 33.3 GM/DL (32-36); Mean Corpuscular Volume 84.1 FL (87-102); Mean Platelet Volume 10.5 FL (9.6-12.0); Monocytes % 8.8 % (1.7-12.7); Neutrophils % 53.4 % (38.7-73.9); Platelet Count 263 T/CUMM (130-400); Red Blood Count 3.71 MC/CUMM (3.8-5.5); Red Cell Distribution Width 18.3 % (9.3-17.3); White Blood Count 5.9 T/CUMM (4-12)
[2020-03-24 07:00] LABS: Calcium 7.2 MG/DL (8.5-10.1); Osmolality,Calculated 277.3 MOS/KG (273-304); Potassium 3.4 MMOL/L (3.5-5.1)
[2020-03-24] MEDS: ROSUVASTATIN 20 MG TABLET PO SCH (08:44)
[2020-03-24] MEDS: METOPROLOL TARTRATE 50 MG TABLET PO SCH ×2 (08:44→20:40)
[2020-03-24] MEDS: FERROUS SULFATE 325 MG TABLET PO SCH ×3 (08:44→20:40)
[2020-03-24] MEDS: amLODIPine 10 MG TABLET PO SCH (08:44)
[2020-03-24] MEDS: DESITIN 4OZ/NYSTATIN 15 GRAM MIXTURE PASTE TOP SCH ×2 (08:45→20:41)
[2020-03-24] MEDS: CIPROFLOXACIN 100 MG/ML 100 ML/BOTTLE PO SCH ×2 (08:45→20:41)
[2020-03-24] MEDS: METOCLOPRAMIDE 10 MG/2 ML VIAL IV SCH ×2 (08:45→20:41)
[2020-03-24] MEDS: ASPIRIN EC 81 MG TABLET PO SCH (08:45)
[2020-03-24] MEDS: SODIUM BICARBONATE 650 MG TABLET PO SCH ×2 (08:45→20:40)
[2020-03-24] MEDS: PANTOPRAZOLE 40 MG TABLET PO SCH ×2 (08:45→20:40)
[2020-03-24] MEDS: ONDANSETRON 4 MG/2 ML VIAL IV PRN (23:14)
[2020-03-25] MEDS: ONDANSETRON 4 MG/2 ML VIAL IV PRN (05:50)
[2020-03-25] MEDS: SODIUM CHLORIDE 0.9% 1,000 ML IV SCH ×4 (06:59→17:29)
[2020-03-25] MEDS: ROSUVASTATIN 20 MG TABLET PO SCH (08:58)
[2020-03-25] MEDS: ASPIRIN EC 81 MG TABLET PO SCH (08:59)
[2020-03-25] MEDS: METOPROLOL TARTRATE 50 MG TABLET PO SCH (08:59)
[2020-03-25] MEDS: PANTOPRAZOLE 40 MG TABLET PO SCH (08:59)
[2020-03-25] MEDS: amLODIPine 10 MG TABLET PO SCH (08:59)
[2020-03-25] MEDS: CIPROFLOXACIN 100 MG/ML 100 ML/BOTTLE PO SCH (08:59)
[2020-03-25] MEDS: SODIUM BICARBONATE 650 MG TABLET PO SCH (08:59)
[2020-03-25] MEDS: METOCLOPRAMIDE 10 MG/2 ML VIAL IV SCH (09:00)
[2020-03-25] MEDS: DESITIN 4OZ/NYSTATIN 15 GRAM MIXTURE PASTE TOP SCH (09:00)
[2020-03-25] MEDS: FERROUS SULFATE 325 MG TABLET PO SCH ×2 (09:00→14:04)
[2020-03-25 11:18] LABS: Calcium 6.8 MG/DL (8.5-10.1); Osmolality,Calculated 275.4 MOS/KG (273-304); Potassium 3.6 MMOL/L (3.5-5.1)
[2020-03-25 16:33] VITALS: BP 121/71
== END 2020-03-25 18:28 | disposition home health service (06) | DRG 469 ==
LOC: EDUNIT# → EDBD → N.ED 10:57 → N.EDINP 13:37 → SUATTDRO 13:37 → N.EDINP 15:03 → N.TELEN 15:38
PROVIDERS: ADMIT Internal Medicine; ATTEND Emergency Medicine

== ENCOUNTER 2020-03-26 09:54 | Inpatient (IN) ==
[2020-03-26] MEDS ORDERED: ONDANSETRON 4 MG/2 ML VIAL IV STA (10:22)
[2020-03-26 11:28] LABS: Basophils # 0.1 10*3/uL (0.0-0.2); Basophils % 0.8 % (0.0-0.8); Eosinophils # 0.1 10*3/uL (0.0-0.87); Eosinophils % 1.5 % (0.00-10.9); Hematocrit 33.2 VOL% (35.7-47.0); Hemoglobin 11.2 GM/DL (12.0-16.0); Immature Granulocytes % 0.5 %; Immature Granulocytes Absolute 0.04 #; Lymphocytes # 2.5 10*3/uL (1.4-4.0); Lymphocytes % 33.1 % (21.3-54.2); Mean Corpuscular HGB Conc 33.7 GM/DL (32-36); Mean Corpuscular Volume 83.6 FL (87-102); Mean Platelet Volume 11.2 FL (9.6-12.0); Monocytes % 7.4 % (1.7-12.7); Neutrophils % 56.7 % (38.7-73.9); Platelet Count 232 T/CUMM (130-400); Red Blood Count 3.97 MC/CUMM (3.8-5.5); Red Cell Distribution Width 18.7 % (9.3-17.3); White Blood Count 7.4 T/CUMM (4-12)
[2020-03-26 11:31] LABS: Bilirubin,Urine Negative (Negative); Blood, Urine Trace mg/dL (Negative); Glucose,Urine (UA) Negative (Negative); Ketones,Urine Trace mg/dL (Negative); Nitrite,Urine Negative (Negative); Protein,Urine 2+ MG/DL; RBC,Urine TNTC /HPF (0-4); Urine Appearance Cloudy (Clear); Urine Color Yellow (Yellow); Urine Urobilinogen < 2.0 EU/DL (0.2-1.0)
[2020-03-26 11:32] LABS: Bacteria,Urine 4+ /HPF (Few); Squamous Epithelial Cell,Urine Rare /HPF (0-10); WBC,Urine TNTC /HPF (0-6)
[2020-03-26 11:36] LABS: Albumin 1.5 G/DL (3.4-5.0); Bilirubin,Total 0.4 MG/DL (0.2-1.0); Calcium 6.9 MG/DL (8.5-10.1); Osmolality,Calculated 275.4 MOS/KG (273-304); Potassium 4.9 MMOL/L (3.5-5.1); Total Protein 5.3 G/DL (6.4-8.3)
[2020-03-26] MEDS ORDERED: cefTRIAXone 1,000 MG in SODIUM CHLORIDE 0.9% 100 ML IV STA (11:47)
[2020-03-26] MEDS ORDERED: GLUCAGON 1 MG VIAL IM PRN (13:26)
[2020-03-26] MEDS ORDERED: DEXTROSE 50% 25 GM/50 ML VIAL IV PRN (13:26)
[2020-03-26] MEDS ORDERED: ENOXAPARIN 40 MG/0.4 ML SYRINGE SUBCUT SCH (13:30)
[2020-03-26] MEDS: ERTAPENEM 1,000 MG in SODIUM CHLORIDE 0.9% 100 ML IV SCH (15:06)
[2020-03-26] MEDS: FERROUS SULFATE 325 MG TABLET PO SCH ×2 (16:21→21:28)
[2020-03-26] MEDS: SODIUM CHLORIDE 0.9% 1,000 ML IV SCH (16:29)
[2020-03-26] MEDS: METOPROLOL TARTRATE 50 MG TABLET PO SCH (21:28)
[2020-03-26] MEDS: SODIUM BICARBONATE 650 MG TABLET PO SCH (21:28)
[2020-03-26] MEDS: APIXABAN 2.5 MG TABLET PO SCH (21:28)
[2020-03-27] MEDS: SODIUM CHLORIDE 0.9% 1,000 ML IV SCH ×2 (02:50→17:00)
[2020-03-27 05:56] LABS: Basophils # 0.1 10*3/uL (0.0-0.2); Eosinophils # 0.1 10*3/uL (0.0-0.87); Hematocrit 31.9 VOL% (35.7-47.0); Hemoglobin 10.6 GM/DL (12.0-16.0); Immature Granulocytes % 0.4 %; Immature Granulocytes Absolute 0.03 #; Lymphocytes # 2.2 10*3/uL (1.4-4.0); Lymphocytes % 32.1 % (21.3-54.2); Mean Corpuscular HGB Conc 33.2 GM/DL (32-36); Mean Corpuscular Volume 83.5 FL (87-102); Mean Platelet Volume 10.8 FL (9.6-12.0); Monocytes % 9.1 % (1.7-12.7); Neutrophils % 55.4 % (38.7-73.9); Platelet Count 270 T/CUMM (130-400); Red Blood Count 3.82 MC/CUMM (3.8-5.5); Red Cell Distribution Width 18.5 % (9.3-17.3); White Blood Count 6.8 T/CUMM (4-12)
[2020-03-27 06:17] LABS: Calcium 6.9 MG/DL (8.5-10.1); Osmolality,Calculated 274.4 MOS/KG (273-304); Potassium 3.2 MMOL/L (3.5-5.1)
[2020-03-27] MEDS: ONDANSETRON 4 MG/2 ML VIAL IV PRN ×3 (09:23→20:26)
[2020-03-27] MEDS: PANTOPRAZOLE 40 MG TABLET PO SCH (09:25)
[2020-03-27] MEDS: FERROUS SULFATE 325 MG TABLET PO SCH ×3 (09:25→20:25)
[2020-03-27] MEDS: ROSUVASTATIN 20 MG TABLET PO SCH (09:25)
[2020-03-27] MEDS: ASPIRIN EC 81 MG TABLET PO SCH (09:25)
[2020-03-27] MEDS: CITALOPRAM 20 MG TABLET PO SCH (09:25)
[2020-03-27] MEDS: METOPROLOL TARTRATE 50 MG TABLET PO SCH ×2 (09:25→20:26)
[2020-03-27] MEDS: amLODIPine 10 MG TABLET PO SCH (09:25)
[2020-03-27] MEDS: APIXABAN 2.5 MG TABLET PO SCH ×2 (09:25→20:24)
[2020-03-27] MEDS: SODIUM BICARBONATE 650 MG TABLET PO SCH ×2 (09:26→20:25)
[2020-03-27] MEDS: ERTAPENEM 1,000 MG in SODIUM CHLORIDE 0.9% 100 ML IV SCH (14:34)
[2020-03-28] MEDS: ONDANSETRON 4 MG/2 ML VIAL IV PRN ×5 (04:43→22:42)
[2020-03-28] MEDS: SODIUM CHLORIDE 0.9% 1,000 ML IV SCH ×2 (04:44→18:07)
[2020-03-28] MEDS: SODIUM BICARBONATE 650 MG TABLET PO SCH ×2 (09:13→21:01)
[2020-03-28] MEDS: FERROUS SULFATE 325 MG TABLET PO SCH ×3 (09:13→21:01)
[2020-03-28] MEDS: ASPIRIN EC 81 MG TABLET PO SCH (09:13)
[2020-03-28] MEDS: METOPROLOL TARTRATE 50 MG TABLET PO SCH ×2 (09:14→21:15)
[2020-03-28] MEDS: amLODIPine 10 MG TABLET PO SCH (09:15)
[2020-03-28] MEDS: ROSUVASTATIN 20 MG TABLET PO SCH (09:15)
[2020-03-28] MEDS: CITALOPRAM 20 MG TABLET PO SCH (09:15)
[2020-03-28] MEDS: PANTOPRAZOLE 40 MG TABLET PO SCH (09:15)
[2020-03-28] MEDS: APIXABAN 2.5 MG TABLET PO SCH ×2 (09:15→21:01)
[2020-03-28] MEDS: ERTAPENEM 1,000 MG in SODIUM CHLORIDE 0.9% 100 ML IV SCH (14:08)
[2020-03-28] MEDS ORDERED: POTASSIUM CHLORIDE 20 MEQ TABLET PO ONE (14:29)
[2020-03-28] MEDS: ASCORBIC ACID 500 MG TABLET PO SCH (21:01)
[2020-03-28] MEDS: CHOLECALCIFEROL 400 UNIT TABLET PO SCH (21:08)
[2020-03-29] MEDS: ONDANSETRON 4 MG/2 ML VIAL IV PRN ×3 (03:57→21:07)
[2020-03-29 06:01] LABS: Basophils % 0.6 % (0.0-0.8); Eosinophils # 0.1 10*3/uL (0.0-0.87); Hematocrit 29.3 VOL% (35.7-47.0); Immature Granulocytes % 0.6 %; Immature Granulocytes Absolute 0.04 #; Lymphocytes # 1.9 10*3/uL (1.4-4.0); Lymphocytes % 27.7 % (21.3-54.2); Mean Corpuscular HGB Conc 34.1 GM/DL (32-36); Mean Corpuscular Volume 82.8 FL (87-102); Mean Platelet Volume 10.8 FL (9.6-12.0); Monocytes % 11.1 % (1.7-12.7); Platelet Count 240 T/CUMM (130-400); Red Blood Count 3.54 MC/CUMM (3.8-5.5); Red Cell Distribution Width 18.7 % (9.3-17.3); White Blood Count 6.9 T/CUMM (4-12)
[2020-03-29 06:17] LABS: Calcium 6.7 MG/DL (8.5-10.1); Osmolality,Calculated 274.4 MOS/KG (273-304)
[2020-03-29 06:18] LABS: HDL Cholesterol 31 MG/DL (40-60); Risk Ratio 1.61; Triglycerides 52 MG/DL (2-150); VLDL CHOLESTEROL 10.4 MG/DL
[2020-03-29] MEDS: POTASSIUM CHLORIDE 20 MEQ TABLET PO ONE ×2 (09:55→15:24)
[2020-03-29] MEDS: APIXABAN 2.5 MG TABLET PO SCH ×3 (09:55→21:09)
[2020-03-29] MEDS: FERROUS SULFATE 325 MG TABLET PO SCH ×4 (09:56→21:09)
[2020-03-29] MEDS: ASCORBIC ACID 500 MG TABLET PO SCH ×3 (09:56→21:09)
[2020-03-29] MEDS: METOPROLOL TARTRATE 50 MG TABLET PO SCH ×3 (09:56→21:10)
[2020-03-29] MEDS: PANTOPRAZOLE 40 MG TABLET PO SCH ×2 (09:56→15:24)
[2020-03-29] MEDS: SODIUM BICARBONATE 650 MG TABLET PO SCH ×3 (09:56→21:09)
[2020-03-29] MEDS: CITALOPRAM 20 MG TABLET PO SCH ×2 (09:56→15:23)
[2020-03-29] MEDS: CHOLECALCIFEROL 400 UNIT TABLET PO SCH ×2 (09:57→21:09)
[2020-03-29] MEDS: ZINC GLUCONATE 50 MG TABLET PO SCH ×2 (09:57→15:20)
[2020-03-29] MEDS: ASPIRIN EC 81 MG TABLET PO SCH ×2 (09:57→15:23)
[2020-03-29] MEDS: ROSUVASTATIN 20 MG TABLET PO SCH ×2 (09:58→15:23)
[2020-03-29] MEDS: ERTAPENEM 1,000 MG in SODIUM CHLORIDE 0.9% 100 ML IV SCH (14:30)
[2020-03-29] MEDS: SODIUM CHLORIDE 0.9% 1,000 ML IV SCH ×2 (14:40→22:51)
[2020-03-29] MEDS ORDERED: MAGNESIUM SULF RIDER 2 GM in PREMIX 1 EACH IV ONE (15:00)
[2020-03-29] MEDS: amLODIPine 10 MG TABLET PO SCH (15:20)
[2020-03-29] MEDS ORDERED: POTASSIUM CHLORIDE RIDER 20 MEQ in PREMIX 1 EACH IV PRN (16:40)
[2020-03-29] MEDS: POTASSIUM CHLORIDE RIDER 10 MEQ in PREMIX 1 EACH IV PRN (19:53)
[2020-03-30] MEDS: ONDANSETRON 4 MG/2 ML VIAL IV PRN (04:27)
[2020-03-30 06:24] LABS: Basophils # 0.1 10*3/uL (0.0-0.2); Basophils % 0.6 % (0.0-0.8); Eosinophils # 0.2 10*3/uL (0.0-0.87); Eosinophils % 2.2 % (0.00-10.9); Hematocrit 31.9 VOL% (35.7-47.0); Hemoglobin 10.3 GM/DL (12.0-16.0); Immature Granulocytes % 0.8 %; Immature Granulocytes Absolute 0.06 #; Lymphocytes # 2.6 10*3/uL (1.4-4.0); Lymphocytes % 33.3 % (21.3-54.2); Mean Corpuscular HGB Conc 32.3 GM/DL (32-36); Mean Corpuscular Volume 85.5 FL (87-102); Mean Platelet Volume 11.5 FL (9.6-12.0); Monocytes % 10.1 % (1.7-12.7); Platelet Count 245 T/CUMM (130-400); Red Blood Count 3.73 MC/CUMM (3.8-5.5); Red Cell Distribution Width 19.1 % (9.3-17.3); White Blood Count 7.8 T/CUMM (4-12)
[2020-03-30 06:59] LABS: Calcium 7.2 MG/DL (8.5-10.1); Osmolality,Calculated 268.7 MOS/KG (273-304); Potassium 3.8 MMOL/L (3.5-5.1)
[2020-03-30] MEDS: SODIUM CHLORIDE 0.9% 1,000 ML IV SCH (07:21)
[2020-03-30] MEDS ORDERED: PROMETHAZINE 25 MG/1 ML VIAL IM PRN (08:56)
[2020-03-30] MEDS: ZINC GLUCONATE 50 MG TABLET PO SCH (10:33)
[2020-03-30] MEDS: SODIUM BICARBONATE 650 MG TABLET PO SCH ×2 (10:34→21:24)
[2020-03-30] MEDS: FERROUS SULFATE 325 MG TABLET PO SCH ×3 (10:34→21:24)
[2020-03-30] MEDS: APIXABAN 2.5 MG TABLET PO SCH ×2 (10:34→21:24)
[2020-03-30] MEDS: ASPIRIN EC 81 MG TABLET PO SCH (10:34)
[2020-03-30] MEDS: ROSUVASTATIN 20 MG TABLET PO SCH (10:34)
[2020-03-30] MEDS: ASCORBIC ACID 500 MG TABLET PO SCH ×2 (10:34→21:24)
[2020-03-30] MEDS: amLODIPine 10 MG TABLET PO SCH (10:34)
[2020-03-30] MEDS: PANTOPRAZOLE 40 MG TABLET PO SCH (10:34)
[2020-03-30] MEDS: METOPROLOL TARTRATE 50 MG TABLET PO SCH ×2 (10:34→21:24)
[2020-03-30] MEDS: CHOLECALCIFEROL 400 UNIT TABLET PO SCH ×2 (10:35→21:24)
[2020-03-30] MEDS: CITALOPRAM 20 MG TABLET PO SCH (10:35)
[2020-03-30] MEDS: ERTAPENEM 1,000 MG in SODIUM CHLORIDE 0.9% 100 ML IV SCH (14:38)
[2020-03-30] MEDS ORDERED: MAGNESIUM SULF RIDER 2 GM in PREMIX 1 EACH IV ONE (15:26)
[2020-03-30] MEDS ORDERED: MULTIVITAMIN INJ 10 ML in DEXTROSE 5% NACL 0.45% 1,000 ML IV SCH (16:00)
[2020-03-30] MEDS: PANTOPRAZOLE 40 MG VIAL IV SCH (21:24)
[2020-03-31] MEDS: ONDANSETRON 4 MG/2 ML VIAL IV PRN ×2 (03:26→09:55)
[2020-03-31 06:10] LABS: Calcium 7.3 MG/DL (8.5-10.1); Osmolality,Calculated 274.4 MOS/KG (273-304); Potassium 3.3 MMOL/L (3.5-5.1)
[2020-03-31 06:13] LABS: Basophils # 0.1 10*3/uL (0.0-0.2); Basophils % 0.8 % (0.0-0.8); Eosinophils # 0.2 10*3/uL (0.0-0.87); Eosinophils % 2.6 % (0.00-10.9); Hematocrit 33.6 VOL% (35.7-47.0); Hemoglobin 10.7 GM/DL (12.0-16.0); Immature Granulocytes % 0.5 %; Immature Granulocytes Absolute 0.03 #; Lymphocytes % 31.4 % (21.3-54.2); Mean Corpuscular HGB Conc 31.8 GM/DL (32-36); Mean Platelet Volume 11.5 FL (9.6-12.0); Neutrophils % 51.7 % (38.7-73.9); Platelet Count 227 T/CUMM (130-400); Red Blood Count 3.86 MC/CUMM (3.8-5.5); Red Cell Distribution Width 19.4 % (9.3-17.3); White Blood Count 6.2 T/CUMM (4-12)
[2020-03-31] MEDS: amLODIPine 10 MG TABLET PO SCH (09:53)
[2020-03-31] MEDS: METOPROLOL TARTRATE 50 MG TABLET PO SCH ×2 (09:53→22:44)
[2020-03-31] MEDS: ASCORBIC ACID 500 MG TABLET PO SCH ×2 (09:53→22:44)
[2020-03-31] MEDS: CITALOPRAM 20 MG TABLET PO SCH (09:53)
[2020-03-31] MEDS: FERROUS SULFATE 325 MG TABLET PO SCH ×3 (09:53→22:43)
[2020-03-31] MEDS: ZINC GLUCONATE 50 MG TABLET PO SCH (09:54)
[2020-03-31] MEDS: APIXABAN 2.5 MG TABLET PO SCH ×2 (09:54→22:44)
[2020-03-31] MEDS: SODIUM BICARBONATE 650 MG TABLET PO SCH ×2 (09:54→22:43)
[2020-03-31] MEDS: ROSUVASTATIN 20 MG TABLET PO SCH (09:54)
[2020-03-31] MEDS: CHOLECALCIFEROL 400 UNIT TABLET PO SCH ×2 (09:54→22:43)
[2020-03-31] MEDS: ASPIRIN EC 81 MG TABLET PO SCH (09:54)
[2020-03-31] MEDS: PANTOPRAZOLE 40 MG VIAL IV SCH ×2 (09:55→22:44)
[2020-03-31] MEDS: SODIUM CHLORIDE 0.9% 1,000 ML IV SCH (10:57)
[2020-03-31] MEDS ORDERED: DEXTROSE 5% NACL 0.45% 1,000 ML IV SCH (13:30)
[2020-03-31] MEDS ORDERED: MAGNESIUM SULF RIDER 2 GM in PREMIX 1 EACH IV ONE (14:30)
[2020-03-31] MEDS: ERTAPENEM 1,000 MG in SODIUM CHLORIDE 0.9% 100 ML IV SCH (14:31)
[2020-03-31] MEDS: POTASSIUM CHLORIDE INJ 10 MEQ in SODIUM CHLORIDE 0.45% 1,000 ML IV SCH (14:57)
[2020-04-01] MEDS: ONDANSETRON 4 MG/2 ML VIAL IV PRN (02:41)
[2020-04-01 06:05] LABS: Basophils # 0.1 10*3/uL (0.0-0.2); Eosinophils # 0.3 10*3/uL (0.0-0.87); Eosinophils % 3.6 % (0.00-10.9); Hematocrit 31.1 VOL% (35.7-47.0); Hemoglobin 10.4 GM/DL (12.0-16.0); Immature Granulocytes % 0.3 %; Immature Granulocytes Absolute 0.02 #; Lymphocytes # 2.5 10*3/uL (1.4-4.0); Mean Corpuscular HGB Conc 33.4 GM/DL (32-36); Mean Corpuscular Volume 82.3 FL (87-102); Mean Platelet Volume 10.3 FL (9.6-12.0); Monocytes % 9.9 % (1.7-12.7); Neutrophils % 49.2 % (38.7-73.9); Platelet Count 300 T/CUMM (130-400); Red Blood Count 3.78 MC/CUMM (3.8-5.5); Red Cell Distribution Width 18.8 % (9.3-17.3)
[2020-04-01 06:28] LABS: Calcium 7.6 MG/DL (8.5-10.1); Osmolality,Calculated 268.8 MOS/KG (273-304); Potassium 3.1 MMOL/L (3.5-5.1)
[2020-04-01 06:44] LABS: Alanine Aminotransferase 19 U/L (13-56); Albumin 1.2 G/DL (3.4-5.0); Alkaline Phosphatase 470 U/L (45-117); Aspartate Amino Transferase 57 U/L (0-37); Bilirubin,Direct < 0.100 MG/DL (0.0-0.20); Bilirubin,Indirect 0.3 MG/DL (0.0-1.0); Bilirubin,Total < 0.39 MG/DL (0.2-1.0); Total Protein 5.2 G/DL (6.4-8.3)
[2020-04-01] MEDS: SODIUM BICARBONATE 650 MG TABLET PO SCH ×2 (10:52→22:35)
[2020-04-01] MEDS: APIXABAN 2.5 MG TABLET PO SCH ×2 (10:52→22:32)
[2020-04-01] MEDS: amLODIPine 10 MG TABLET PO SCH (10:52)
[2020-04-01] MEDS: ASPIRIN EC 81 MG TABLET PO SCH (10:52)
[2020-04-01] MEDS: MULTIVITAMIN (CENTRUM) TABLET PO SCH (10:53)
[2020-04-01] MEDS: ZINC GLUCONATE 50 MG TABLET PO SCH (10:53)
[2020-04-01] MEDS: ROSUVASTATIN 20 MG TABLET PO SCH (10:53)
[2020-04-01] MEDS: PANTOPRAZOLE 40 MG VIAL IV SCH ×2 (10:53→22:31)
[2020-04-01] MEDS: CITALOPRAM 20 MG TABLET PO SCH (10:53)
[2020-04-01] MEDS: ASCORBIC ACID 500 MG TABLET PO SCH ×2 (10:53→22:32)
[2020-04-01] MEDS: CHOLECALCIFEROL 400 UNIT TABLET PO SCH ×2 (10:53→22:32)
[2020-04-01] MEDS: METOPROLOL TARTRATE 50 MG TABLET PO SCH ×2 (10:53→22:36)
[2020-04-01] MEDS: FERROUS SULFATE 325 MG TABLET PO SCH ×3 (10:53→22:32)
[2020-04-01] MEDS: POTASSIUM CHLORIDE RIDER 10 MEQ in PREMIX 1 EACH IV PRN (10:54)
[2020-04-01] MEDS: POTASSIUM CHLORIDE INJ 10 MEQ in SODIUM CHLORIDE 0.45% 1,000 ML IV SCH (11:49)
[2020-04-01] MEDS ORDERED: POTASSIUM CHLORIDE 20 MEQ TABLET PO ONE (15:00)
[2020-04-01] MEDS ORDERED: MAGNESIUM SULF RIDER 2 GM in PREMIX 1 EACH IV ONE (15:00)
[2020-04-01] MEDS: ERTAPENEM 1,000 MG in SODIUM CHLORIDE 0.9% 100 ML IV SCH (15:05)
[2020-04-02] MEDS: ASCORBIC ACID 500 MG TABLET PO SCH ×3 (00:48→21:52)
[2020-04-02 07:30] LABS: Basophils # 0.1 10*3/uL (0.0-0.2); Basophils % 1.1 % (0.0-0.8); Eosinophils # 0.4 10*3/uL (0.0-0.87); Eosinophils % 5.9 % (0.00-10.9); Hematocrit 32.6 VOL% (35.7-47.0); Hemoglobin 10.7 GM/DL (12.0-16.0); Immature Granulocytes % 0.3 %; Immature Granulocytes Absolute 0.02 #; Lymphocytes # 2.5 10*3/uL (1.4-4.0); Lymphocytes % 34.8 % (21.3-54.2); Mean Corpuscular HGB Conc 32.8 GM/DL (32-36); Mean Corpuscular Volume 83.8 FL (87-102); Mean Platelet Volume 10.6 FL (9.6-12.0); Neutrophils % 49.9 % (38.7-73.9); Platelet Count 317 T/CUMM (130-400); Red Blood Count 3.89 MC/CUMM (3.8-5.5); Red Cell Distribution Width 19.6 % (9.3-17.3); White Blood Count 7.2 T/CUMM (4-12)
[2020-04-02] MEDS: POTASSIUM CHLORIDE INJ 10 MEQ in SODIUM CHLORIDE 0.45% 1,000 ML IV SCH (07:38)
[2020-04-02 07:46] LABS: Calcium 7.9 MG/DL (8.5-10.1); Osmolality,Calculated 267.8 MOS/KG (273-304); Potassium 3.9 MMOL/L (3.5-5.1)
[2020-04-02] MEDS: SODIUM BICARBONATE 650 MG TABLET PO SCH ×2 (08:20→21:50)
[2020-04-02] MEDS: CHOLECALCIFEROL 400 UNIT TABLET PO SCH ×2 (08:20→21:51)
[2020-04-02] MEDS: PANTOPRAZOLE 40 MG VIAL IV SCH ×2 (08:20→21:55)
[2020-04-02] MEDS: ASPIRIN EC 81 MG TABLET PO SCH (08:20)
[2020-04-02] MEDS: ZINC GLUCONATE 50 MG TABLET PO SCH (08:20)
[2020-04-02] MEDS: METOPROLOL TARTRATE 50 MG TABLET PO SCH ×3 (08:21→21:51)
[2020-04-02] MEDS: MULTIVITAMIN (CENTRUM) TABLET PO SCH (08:21)
[2020-04-02] MEDS: APIXABAN 2.5 MG TABLET PO SCH ×2 (08:21→21:52)
[2020-04-02] MEDS: amLODIPine 10 MG TABLET PO SCH (08:21)
[2020-04-02] MEDS: FERROUS SULFATE 325 MG TABLET PO SCH ×3 (08:21→21:52)
[2020-04-02] MEDS: ROSUVASTATIN 20 MG TABLET PO SCH (08:21)
[2020-04-02] MEDS: CITALOPRAM 20 MG TABLET PO SCH (08:21)
[2020-04-02] MEDS: ONDANSETRON 4 MG/2 ML VIAL IV PRN (09:11)
[2020-04-02] MEDS ORDERED: MAGNESIUM SULF RIDER 2 GM in PREMIX 1 EACH IV ONE (13:16)
[2020-04-03] MEDS: POTASSIUM CHLORIDE INJ 10 MEQ in SODIUM CHLORIDE 0.45% 1,000 ML IV SCH (03:41)
[2020-04-03 05:53] LABS: Basophils # 0.1 10*3/uL (0.0-0.2); Basophils % 0.8 % (0.0-0.8); Eosinophils # 0.5 10*3/uL (0.0-0.87); Eosinophils % 6.6 % (0.00-10.9); Hematocrit 29.1 VOL% (35.7-47.0); Hemoglobin 9.8 GM/DL (12.0-16.0); Immature Granulocytes % 0.3 %; Immature Granulocytes Absolute 0.02 #; Lymphocytes # 2.3 10*3/uL (1.4-4.0); Mean Corpuscular HGB Conc 33.7 GM/DL (32-36); Mean Corpuscular Volume 82.4 FL (87-102); Mean Platelet Volume 11.7 FL (9.6-12.0); Neutrophils % 52.3 % (38.7-73.9); Platelet Count 228 T/CUMM (130-400); Red Blood Count 3.53 MC/CUMM (3.8-5.5); Red Cell Distribution Width 19.8 % (9.3-17.3); White Blood Count 7.2 T/CUMM (4-12)
[2020-04-03 06:40] LABS: Calcium 7.6 MG/DL (8.5-10.1)
[2020-04-03] MEDS ORDERED: TUBERCULIN SKIN TEST 0.1 ML SYRINGE INTRADERM ONE (08:12)
[2020-04-03] MEDS: PANTOPRAZOLE 40 MG VIAL IV SCH ×2 (09:07→22:08)
[2020-04-03] MEDS: ASPIRIN EC 81 MG TABLET PO SCH (10:26)
[2020-04-03] MEDS: FERROUS SULFATE 325 MG TABLET PO SCH ×3 (10:27→22:04)
[2020-04-03] MEDS: ROSUVASTATIN 20 MG TABLET PO SCH (10:27)
[2020-04-03] MEDS: MULTIVITAMIN (CENTRUM) TABLET PO SCH (10:27)
[2020-04-03] MEDS: CITALOPRAM 20 MG TABLET PO SCH (10:27)
[2020-04-03] MEDS: APIXABAN 2.5 MG TABLET PO SCH ×2 (10:27→22:04)
[2020-04-03] MEDS: METOPROLOL TARTRATE 50 MG TABLET PO SCH ×2 (10:27→22:04)
[2020-04-03] MEDS: amLODIPine 10 MG TABLET PO SCH (10:27)
[2020-04-03] MEDS: ASCORBIC ACID 500 MG TABLET PO SCH ×2 (10:28→22:04)
[2020-04-03] MEDS: SODIUM BICARBONATE 650 MG TABLET PO SCH ×2 (10:28→22:03)
[2020-04-03] MEDS: ZINC GLUCONATE 50 MG TABLET PO SCH (10:28)
[2020-04-03] MEDS: CHOLECALCIFEROL 400 UNIT TABLET PO SCH ×2 (10:28→22:04)
[2020-04-04 06:07] LABS: Basophils # 0.1 10*3/uL (0.0-0.2); Eosinophils # 0.5 10*3/uL (0.0-0.87); Eosinophils % 5.9 % (0.00-10.9); Hematocrit 29.7 VOL% (35.7-47.0); Immature Granulocytes % 0.3 %; Immature Granulocytes Absolute 0.02 #; Lymphocytes # 2.4 10*3/uL (1.4-4.0); Lymphocytes % 30.2 % (21.3-54.2); Mean Corpuscular HGB Conc 33.7 GM/DL (32-36); Monocytes % 8.6 % (1.7-12.7); Platelet Count 324 T/CUMM (130-400); Red Blood Count 3.62 MC/CUMM (3.8-5.5); Red Cell Distribution Width 19.9 % (9.3-17.3)
[2020-04-04 06:33] LABS: Osmolality,Calculated 266.8 MOS/KG (273-304); Potassium 3.7 MMOL/L (3.5-5.1)
[2020-04-04] MEDS: PANTOPRAZOLE 40 MG VIAL IV SCH (09:25)
[2020-04-04] MEDS: ZINC GLUCONATE 50 MG TABLET PO SCH (09:26)
[2020-04-04] MEDS: APIXABAN 2.5 MG TABLET PO SCH (09:26)
[2020-04-04] MEDS: ROSUVASTATIN 20 MG TABLET PO SCH (09:26)
[2020-04-04] MEDS: amLODIPine 10 MG TABLET PO SCH (09:26)
[2020-04-04] MEDS: METOPROLOL TARTRATE 50 MG TABLET PO SCH (09:26)
[2020-04-04] MEDS: SODIUM BICARBONATE 650 MG TABLET PO SCH (09:26)
[2020-04-04] MEDS: FERROUS SULFATE 325 MG TABLET PO SCH (09:26)
[2020-04-04] MEDS: ASPIRIN EC 81 MG TABLET PO SCH (09:26)
[2020-04-04] MEDS: CHOLECALCIFEROL 400 UNIT TABLET PO SCH (09:26)
[2020-04-04] MEDS: MULTIVITAMIN (CENTRUM) TABLET PO SCH (09:26)
[2020-04-04] MEDS: ASCORBIC ACID 500 MG TABLET PO SCH (09:26)
[2020-04-04] MEDS: CITALOPRAM 20 MG TABLET PO SCH (09:26)
[2020-04-04 12:49] VITALS: BP 110/63
[2020-04-04] MEDS ORDERED: COSYNTROPIN 0.25 MG VIAL IV ONE (14:12)
== END 2020-04-04 14:20 | DRG 241 ==
LOC: EDUNIT# → EDBD → N.ED 09:54 → SUATTDRO 13:26 → N.EDINP 13:26 → N.3E 18:20
PROVIDERS: ADMIT Emergency Medicine; ATTEND Internal Medicine